=== PATIENT | female | born 1930 | race Caucasian/White ===

== ENCOUNTER 2017-01-11 10:01 | Outpatient (CLI) | payer MEDICARE, MEDICAID ==
--- NOTE | 2017-01-11 13:44 | RAD ---
CHEST TWO VIEWS: HISTORY: Dyspnea. COMPARISON: None. FINDINGS: The lungs are hyperinflated. Nodular density is present over the left upper lobe, left lower lobe, and right upper lobe. There is a compression fracture with near complete anterior height loss and 50% posterior height los s at the mid thoracic spine, likely at T7. Degenerative changes of the right acromioclavicular joint. Calcific tendinosis of both rotator cuff s. Narrowing of the right subacromial space. Likely old right-sided rib fractures. Surgical clips in the right upper quadrant of the abdomen. IMPRESSION: 1. Nodular densities, left upper lobe, left lower lobe, and right middle lobe, likely scarring or g ranulomas. Follow-up CT of the chest can be obtained. 2. Lung hyperinflation suggests obstructive pulmonary disease. 3. Compression fracture likely at T7 with complete anterior height loss and 40% to 50% posterior he ight loss of the vertebral body with focal kyphosis. POS: [facility]
== END 2017-01-11 10:02 | disposition home or self-care (01) ==
LOC: RAD 10:01
PROVIDERS: ATTEND Internal Medicine Critical Care Medicine
DX: R06.00 Dyspnea, unspecified (principal); R91.8 Other nonspecific abnormal finding of lung field
CPT/HCPCS: 71020

== ENCOUNTER 2017-02-04 18:21 | Inpatient (IN) | payer MEDICARE, MEDICAID ==
[~2017-02-04 18:21] MED LIST: ISOVUE-370 76%-LOCM 1 ML ONE
[2017-02-04] MEDS ORDERED: Acetaminophen 650 MG Suppository ONE (19:21)
[2017-02-04 19:33] LABS: #Lymphocytes 0.6 thou/uL (1.20-3.40); #Monocytes 0.6 thou/uL (0.11-0.59); #Neutrophils 4.7 thou/uL (1.40-6.50); %Basophils 0.3 % (0.0-1.0); %Eosinophils 0.3 % (0.0-10.0); %Monocytes 10.2 % (0.0-10.0); Hematocrit 57.6 % (36.0-47.0); Mean Platelet Volume 7.2 fL (7.4-10.4); Red Blood Cell (RBC) Count 5.77 mill/uL (4.20-5.40); White Blood Cell (WBC) Count 5.9 thou/uL (4.8-10.8)
[2017-02-04] MEDS ORDERED: Piperacillin/Tazobactam 3.375 GM in Sodium Chloride 0.9% 100 ML IVPB SCH (19:45)
[2017-02-04 19:59] LABS: Lactic Acid - Sepsis 0.9 mmol/L (0.5-2.2)
[2017-02-04 20:04] LABS: ALT (SGPT) 47 U/L (8-55); AST (SGOT) 44 U/L (5-34); Alkaline Phosphatase 63 U/L (40-150); Anion Gap 16 mmol/L (10-20); BUN (Urea Nitrogen) 20 mg/dL (9.8-20.1); Bilirubin, Total 0.6 mg/dL (0.2-1.2); Calc. Creatinine Clearance 0 mL/min (70-130); Calcium 9.1 mg/dL (7.8-10.44); Carbon Dioxide 21 mmol/L (23-31); Chloride 105 mmol/L (98-107); Estimated GFR-MDRD 68; Globulin 3.7 g/dL (2.4-3.5); Protein, Total 6.9 g/dL (6.0-8.3)
--- NOTE | 2017-02-04 20:06 | RAD ---
PORTABLE UPRIGHT FRONTAL CHEST RADIOGRAPH 02/04/17 COMPARISON: 01/29/17 HISTORY: Fever and altered mental status. FINDINGS: No pneumothorax is seen. There is pulmonary vascular prominence. There is increased linear density i n both lung bases, left greater than right. There is dense opacity in the left lower lobe region. Re cent CT performed demonstrates consolidation/collapse of left lower lobe and bilateral ple ural effusions. Blunting of the costophrenic angle suggests persistent pleural fluid. IMPRESSION: Pulmonary vascular prominence with interstitial density in both lung bases, dense opacity in the lef t lower lobe region and small bilateral pleural effusions. Findings are most consistent with pulmona ry edema, but infectious pneumonitis, particularly in the left lung base, cannot be excluded. Follow up imaging following treatment to document resolution advised. POS: [facility]
[2017-02-04 20:55] LABS: Bilirubin Negative (Negative); Blood, Urine Small (Negative); Glucose, Urine (Dipstick) Negative (Negative); Ketone, Urine 15 mg/dL (Negative); Nitrite Negative (Negative); Protein, Urine (Dipstick) 100 mg/dL (Neg-Trace); Urobilinogen 0.2 mg/dL (0.2-1.0)
[2017-02-04 20:56] LABS: Bacteria/HPF None Seen HPF (None Seen); Hyaline Casts/LPF 0-3 HYALINE CAST LPF (0-3 Hyaline); Squamous Epithelial 0-3 HPF (0-3)
[2017-02-04 21:00] LABS: Oxyhemoglobin 94.7 % (94.0-97.0); Sodium 139 mmol/L (135-148)
[2017-02-04 21:01] LABS: Mode NC; Modified Allen's Test POSITIVE
--- NOTE | 2017-02-04 22:16 | CT ---
CT ANGIOGRAM CHEST 02/04/17 COMPARISON: None. HISTORY: Tachycardia, altered mental status. TECHNIQUE: Serial axial CT imaging at 2.5 mm intervals from thoracic inlet through upper abdomen with IV contra st using a CT angiogram protocol. Coronal and sagittal 3D reformatted imaging obtained. FINDINGS: No axillary lymphadenopathy. There is an enlarged left hilar node measuring 1.1 cm in short axis dim ension. There is a mildly enlarged pretracheal node measuring 1 cm in short axis dimension. There is a probable cyst seen centrally within the liver on axial image 86. No significant mediastinal or pericardial fluid. Small/moderate bilateral pleural effusions are noted, left greater than right. There is adequate opacification of the pulmonary arterial vasculature with no evidence for acute pul monary embolism. Mild hazy ground glass opacity is noted within the posterior aspect of the lingula. There is nonspec ific partial consolidation/collapse of the left lower lobe. There is increased linear density in the posterior aspect of the right lower lobe abutting the above described right pleural effusion sugges ting volume loss. Granulomatous calcification noted in the right upper lobe. Right middle and right upper lobe otherwise unremarkable. There is a severe compression deformity involving a mid thoracic vertebral body, likely T8. There is an old fracture of the right scapula superiorly/posteriorly. The bones are osteopenic. IMPRESSION: 1. No evidence for pulmonary embolism. Bilateral pleural effusions with associated pulmonary pa renchymal opacity, likely on the basis of pulmonary edema, infectious pneumonitis cannot be excluded . Followup imaging following treatment to document resolution advised. 2. Nonspecific mild left hilar and mediastinal adenopathy. This may be reactive in nature. This could be reactive in nature. This could be better assessed on followup imaging following treatment of the acute findings. POS: [facility]
[2017-02-04] MEDS ORDERED: Ondansetron ODT 4 MG TAB SL PRN (23:11)
[2017-02-04] MEDS ORDERED: Acetaminophen 325 MG TAB PO PRN (23:11)
[2017-02-04] MEDS ORDERED: Ondansetron HCl/PF 4 MG/2 ML Vial IVP PRN (23:11)
[2017-02-04 23:44] VITALS: BMI 21.8
[2017-02-05] MEDS: Piperacillin/Tazobactam 3.375 GM, Admixture Fee 1 EACH in Sodium Chloride 0.9% 100 ML IVPB SCH ×4 (10:02→23:46)
[2017-02-05] MEDS: Acetaminophen 325 MG TAB PO PRN ×2 (17:14→21:01)
--- NOTE | 2017-02-05 18:12 | RAD ---
RIGHT KNEE FOUR VIEW 02/05/17 HISTORY: Pain. COMPARISON: None. FINDINGS: There is extensive calcium pyrophosphate deposition disease throughout the menisci as well of the cr uciate ligaments. Mild osteopenia. There is a small joint effusion. No acute fracture is appreciated . IMPRESSION: 1. Small effusion with calcium pyrophosphate deposition disease. 2. 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 3. Mild sclerosis of the epiphysis can be seen with stress injury. MRI may be helpful. POS: [facility]
[2017-02-06 05:10] LABS: #Eosinphils 0.2 thou/uL (0.0-0.7); #Lymphocytes 1.4 thou/uL (1.20-3.40); #Monocytes 1.1 thou/uL (0.11-0.59); #Neutrophils 10.3 thou/uL (1.40-6.50); %Basophils 0.2 % (0.0-1.0); %Eosinophils 1.2 % (0.0-10.0); %Lymphocytes 10.8 % (21.0-51.0); %Monocytes 8.5 % (0.0-10.0); Hematocrit 39.3 % (36.0-47.0); Mean Platelet Volume 7.2 fL (7.4-10.4); Red Blood Cell (RBC) Count 3.97 mill/uL (4.20-5.40)
[2017-02-06 05:12] LABS: Anion Gap 16 mmol/L (10-20); BUN (Urea Nitrogen) 18 mg/dL (9.8-20.1); Calc. Creatinine Clearance 37 mL/min (70-130); Calcium 8.9 mg/dL (7.8-10.44); Carbon Dioxide 22 mmol/L (23-31); Chloride 108 mmol/L (98-107); Estimated GFR-MDRD 60
[2017-02-06] MEDS: Piperacillin/Tazobactam 3.375 GM, Admixture Fee 1 EACH in Sodium Chloride 0.9% 100 ML IVPB SCH ×3 (05:39→18:30)
--- NOTE | 2017-02-06 07:32 | HP ---
DATE OF ADMISSION: 02/04/2017 REASON FOR ADMISSION/CHIEF COMPLAINT: Evaluation for lethargy. HISTORY OF PRESENT ILLNESS: Ms. Dennis is an 86-year-old female, who was recently in [facility] and discharged on 02/04/2017 after being treated for urinary tract infection and possibl e infiltrate in left lung. She was treated with IV antibiotics and switched to the oral antibiotic and discharged back to the [facility]. At the time of discharge, she was stable. She was alert, awake, and she was hemodynamically stable, but when she arrived at the [facility], they noted the patient was a little bit lethargic and tachycardic. O2 saturation 88% on room air, so EMS was hu d again because of this condition. So the patient was given IV fluids on the way to the hospital 50 0 mL. By the time she came to the hospital, she was more awake and alert. The patient followed the commands while she was in the ER. The patient did have a temperature of 100.7, but her blood press ure was 120/70. Pulse was initially 119, but came down to 79. The patient received Zosyn and vanco mycin IV and also received IV fluids 1 liter and Tylenol. The patient is admitted for further evalu ation and management. PAST MEDICAL HISTORY: 1. Gastroesophageal reflux disease. 2. History of Parkinson disease. 3. History of chronic obstructive pulmonary disease. 4. Generalized weakness. 5. Anxiety disorder. PAST SURGICAL HISTORY: Status post cholecystectomy. CURRENT MEDICATIONS: The patient is on multivitamin daily, Colace daily, ranitidine 150 b.i.d., tra madol p.r.n., Biofreeze q.4 hours. ALLERGIES: CIPRO. FAMILY HISTORY: Nothing of contributory. SOCIAL HISTORY: The patient lives in [facility]. No history of smoking. No history of alcohol i ntake. REVIEW OF SYSTEMS: Cardiovascular: No chest pain. No shortness of breath. Respiratory: No cough. Has a low grade f ever. Gastrointestinal: No nausea or vomiting. No abdominal pain. Genitourinary: No dysuria or hematuria. Central nervous system: No headache, no dizziness. PHYSICAL EXAMINATION: GENERAL: The patient is alert, awake, oriented x3. VITAL SIGNS: Temperature 100.7, respiratory rate 20, blood pressure 130/60, O2 saturation 96% on 2 liters. HEENT: Head is normocephalic, atraumatic. Pupils are equal and reactive to light. Nasopharynx is pink, moist. NECK: Supple. No JVD. LUNGS: Bilateral air entry present. No wheezing, crackles present in left base. CARDIAC: S1, S2 regular. ABDOMEN: Soft, no distention, no tenderness. Normal bowel sounds. RECTAL: Deferred. CENTRAL NERVOUS SYSTEM: No focal neurological deficit. The patient is alert, awake, oriented x2. Motor system power 3-4/5 in all extremities. Deep tendon reflexes 2+ bilaterally. Plantar downgoin g. EXTREMITIES: Right knee is tender and stiff. No swelling. Range of movements limited. LABORATORY DATA: CBC shows WBC 5.9, hemoglobin 18, hematocrit 57, platelets 185. Metabolic panel: Sodium 138, potassium 3.8, chloride 105, CO2 of 21, urea nitrogen 20, creatinine 0.8, glucose 115. ABG showed pH of 7.45, pCO2 of 35, pO2 of 75, saturation 96%. Urinalysis showed wbc's 4-6, bacteri a none. Chest x-ray showed hazy density in the left lower lobe and mild pleural effusions bilateral ly. CT angio chest showed no pulmonary embolism, did show pleural effusion with density in the left lower lobe. EKG not done. ASSESSMENT: 1. Possible pneumonia, left lower lobe. 2. Encephalopathy, metabolic. 3. Tachycardia and hypoxia. 4. History of urinary tract infection. 5. History of chronic obstructive pulmonary disease. 6. History of Parkinson disease. PLAN: 1. Vital signs q.4 hours. 2. Activity: As tolerated. 3. Allergies: CIPRO. 4. Diet: Regular. 5. Hep-Lock. 6. Zosyn 3.375 grams IV piggyback q.6 hours. 7. Continue [facility] medication. 8. BNP now. 9. The patient is DNR. 10. DuoNebs p.r.n. 11. Tramadol p.r.n. 12. X-ray of the left knee. 13. Echocardiogram.
[2017-02-06] MEDS: Docusate 100 MG CAP PO SCH (08:54)
[2017-02-06] MEDS ORDERED: FLU VACC TS2017-18 (>65YR) 0.5 ML SYRINGE IM ONE (09:00)
[2017-02-06] MEDS ORDERED: Ketorolac Tromethamine 30 MG/ML VIAL IVP SCH (10:30)
[2017-02-06] MEDS ORDERED: predniSONE 20 MG TAB PO SCH (10:30)
[2017-02-06] MEDS: Acetaminophen 325 MG TAB PO PRN (16:15)
--- NOTE | 2017-02-06 17:00 | CON ---
DATE OF CONSULTATION: 02/06/2017 REASON FOR CONSULTATION: Readmission with change in mental status, hypoxemia, low grade temperature elevation. HISTORY OF PRESENT ILLNESS: An 86-year-old who I had seen just a few days ago when she presented wi th history of Parkinson's disease and COPD, who had been admitted with fever, some rest, but no othe r symptoms associated with the finding. Initial findings in the emergency room included temperature 102, initial white cell count 8.7 with a predominance of mature neutrophils and some pyuria in the urinalysis. She had 3 different organisms retrieved from urine sample, but CT angio and the duplex ultrasound of lower extremities with no evidence of thromboembolism. In the hospital, she was given broad spectrum antimicrobial coverage and improved and eventually transitioned back to oral and dis charged. In the [facility], she then stayed more than a few hours, the nurses were concern with r ecrudescence of the abnormalities in mental status, since she had a low-grade temperature elevation and hypoxemia noted as well. O2 sat around mid 80s. The patient was transferred back here and admi tted again. Initial findings, temperature 100.7, respiratory rate 20, blood pressure 130/60, O2 sat 96% on 2 liters. The exam was not remarkable. Initial lab data, white cell count 5.9, hemoglobin 18, platelets 185, 79% neutrophils. The patient was given inhalers, Protonix, Zosyn, prednisone. Jory george, Ms. Dennis is awake, seems to be back to her baseline. She has no complaints at this t benny. Specifically, no headaches, no shortness of breath, no cough, no abdominal pain. She is voidi ng spontaneously. PAST MEDICAL HISTORY: Parkinson's disease, GERD, COPD, anxiety, weakness. PAST SURGICAL HISTORY: Cholecystectomy. ALLERGIES: CIPROFLOXACIN with rash. CURRENT MEDICATIONS: Inhalers, Protonix, Zosyn, and prednisone. FAMILY HISTORY: Noncontributory. SOCIAL HISTORY: group home resident. Never a smoker. PHYSICAL EXAMINATION: VITAL SIGNS: T-max 98.7, blood pressure 130/60, pulse 89, respirations 18, O2 sat 96%. GENERAL: No distress, awake. She has hypomotility typical of Parkinson's disease. She is oriented , follows commands. SKIN: No areas of skin breakdown. Peripheral IV access. The patient is voiding with the assistanc e of a Nuñez catheter. HEENT: Ocular movements are conjugate. Sclerae are white. The conjunctivae normal. Oral cavity n ot remarkable. Diffuse stiffness. LUNGS: With symmetric air entry. HEART: S1, S2, regular rate. ABDOMEN: Soft, not distended, no tenderness, diffuse stiffness. EXTREMITIES: No joint inflammatory activity. Trace edema in lower extremities. Pulses are 1+ in d orsalis pedis. She is able to move extremities with limitations, resting tremor. LABORATORY: Microbiology with negative blood and urine culture thus far. The imaging studies as no mikayla above. There is a knee x-ray from 02/05/2017, CPPD findings. ASSESSMENT: 1. Parkinson disease. 2. Chronic obstructive pulmonary disease. 3. Hypoxemia, hypoventilation. 4. Low grade temperature elevation. 5. Possible pneumonia. DISCUSSION: The most likely scenario is persistence of pneumonia and exacerbation of hypoventilatio n associated with Parkinson disease, hypoxemia. Continue IV Zosyn, DVT prophylaxis. It does not lo ok like she is on any medication for Parkinson disease and she may require Sinemet to manage the mot ility abnormalities which are probably contributing to her respiratory issues. At this time, I will her in the hospital until there is further improvement in the patient's pneumonitis, consider O2 joy pplementation in the [facility] and again consider starting specific management for Parkinson dise ase with carbidopa/levodopa with the assistance of Neurology.
[2017-02-06] MEDS: Vancomycin HCl 1 GM in Premix Bag 1 BAG IVPB SCH (17:25)
[2017-02-06] MEDS ORDERED: Clopidogrel Bisulfate 75 MG TAB ONE (18:29)
[2017-02-07] MEDS: Piperacillin/Tazobactam 3.375 GM, Admixture Fee 1 EACH in Sodium Chloride 0.9% 100 ML IVPB SCH ×4 (01:03→18:02)
[2017-02-07] MEDS: Vancomycin HCl 1 GM in Premix Bag 1 BAG IVPB SCH ×2 (05:33→16:32)
[2017-02-07 05:34] LABS: Anion Gap 12 mmol/L (10-20); BUN (Urea Nitrogen) 21 mg/dL (9.8-20.1); Calc. Creatinine Clearance 38 mL/min (70-130); Calcium 8.7 mg/dL (7.8-10.44); Carbon Dioxide 25 mmol/L (23-31); Chloride 109 mmol/L (98-107); Estimated GFR-MDRD 61
[2017-02-07] MEDS ORDERED: predniSONE 20 MG TAB PO SCH (09:00)
[2017-02-07] MEDS: Docusate 100 MG CAP PO SCH (09:50)
[2017-02-07] MEDS ORDERED: Furosemide 40 MG/4 ML VIAL SLOW IVP SCH (12:45)
--- NOTE | 2017-02-07 12:59 | PQF ---
CLINICAL DOCUMENTATION IMPROVEMENT CLARIFICATION FORM: ICD-10 Updated PLEASE DO AN ADDENDUM TO THE PROGRESS NOTE WITH ANY DOCUMENTATION UPDATES OR ADDITIONS AND CARRY THROUGH TO DC SUMMARY. THANK YOU. DATE: 02/07 ATTN: DR. Hamlet SEGOVIA Please exercise your independent, professional judgment in responding to the clarification form. Clinical indicators are provided on the bottom of this form for your review Please check appropriate box(s): [ ] Acute Respiratory Failure: [ ] with Hypoxia [ ] with Hypercapnia [ ] Acute Respiratory Failure due to: (etiology) [ y ] Other diagnosis _pneumonia [ ] Unable to determine For continuity of documentation, please document condition throughout progress notes and discharge summary. Thank You. CLINICAL INDICATORS - SIGNS / SYMPTOMS / LABS ER PRESENTATION 02/04: RA SAT: 88%, PLACED ON 2L NC: 95% PATIENT CONFUSED, A/O X1 CXR 02/04: PULMONARY VASCULAR PROMINENCES W/INTERSTITIAL DENSITY IN BOTH LUNG BASES, DENSE OPACITY IN LLL REGION & SMALL B PLEURAL EFFUSIONS, ...C/W PULMONARY EDEMA, BUT INFECTIOUS PNEUMONITIS, ...CANNOT BE EXCLUDED PHYSICIAN H&P DOCUMENTATION 02/04: ASSESSMENT: 3. TACHYCARDIA & HYPOXIA RISK FACTORS: HX OF COPD HYPOXIA POSSIBLE LLL PNEUMONIA TREATMENTS: SUPPLEMENTAL OXYGEN (2L NC) IV ANTIBIOTICS (IV ZOSYN & VANCOMYCIN 02/04 - PRESENT) MONITORING OF 02 STATUS PULMONOLOGY CONSULT THANK YOU! Violet (This form is maintained as a part of the permanent medical record) 2014 [email or web address]. All Rights Reserved Violet Horn RN, BSN [email or web address] Office: [phone] [facility]
--- NOTE | 2017-02-07 13:09 | PQF ---
SAP Wire Tester Crystal Reports Winform ViewerALEXAKEARA,MATHIEU SEGOVIA, RUTHIE Dexter [place] [id number] [facility]-[id number] CLINICAL DOCUMENTATION IMPROVEMENT CLARIFICATION FORM: ICD-10 Updated PLEASE DO AN ADDENDUM TO THE PROGRESS NOTE WITH ANY DOCUMENTATION UPDATES OR ADDITIONS AND CARRY THROUGH TO DC SUMMARY. THANK YOU. DATE: 02/07 ATTN: DR. Hamlet SEGOVIA Please exercise your independent, professional judgment in responding to the clarification form. Clinical indicators are provided on the bottom of this form for your review Please check appropriate box(s): [ ] Sepsis due to: (Pna, UTI, gangrenous gall bladder, etc.) [ ] Severe sepsis with acute organ dysfunction of: (Examples: respiratory failure, encephalopathy, acute kidney failure, other) [ y ] Localized infection without sepsis [ ] Other diagnosis [ ] Unable to determine For continuity of documentation, please document condition throughout progress notes and discharge summary. Thank You. CLINICAL INDICATORS - SIGNS / SYMPTOMS / LABS ER PRESENTATION 02/04: T: 101.2 HR: 119 RA SAT 88% AMS ER PHYSICIAN DIAGNOSES DOCUMENTATION 02/04: PRIMARY: SEPSIS, ADDITIONAL: AMS PHYSICIAN H&P DOCUMENTATION 02/04: ASSESSMENT: 1. POSSIBLE PNEUMONIA, LLL; 2. ENCEPHALOPATHY, METABOLIC RISK FACTORS: PNEUMONIA METABOLIC ENCEPHALOPATHY UTI RECENT SEPSIS TREATMENTS: IV ANTIBIOTICS (ZOSYN & VANCOMYCIN 02/04 - PRESENT) INFECTIOUS DX CONSULT THANK YOU! Violet (This form is maintained as a part of the permanent medical record) 2014 [email or web address]. All Rights Reserved Violet Horn RN, BSN [email or web address] Office: [phone] [facility]
--- NOTE | 2017-02-07 14:51 | PRG ---
DATE OF SERVICE: 02/07/2017 SUBJECTIVE: The patient has been transferred to [facility]. No headaches, no chest pain. Some cough. N o abdominal pain, no diarrhea. OBJECTIVE: VITAL SIGNS: Temperature max 97.5, blood pressure 120/78, pulse 68, respirations 16 and O2 saturati on 97%. GENERAL: Appears again quite low mobility probably secondary to Parkinson disease. Resting tremors noted in the right upper extremity. LUNGS: With few crackles on the left side. HEART: S1 and S2, regular rate. ABDOMEN: Soft. LABORATORY AND IMAGING DATA: White cell count from yesterday 13,000 and hemoglobin 12. Today's amanda gloria with a creatinine of 0.87, BUN 21 and chloride 109. Microbiology with negative blood culture s at 48 hours, negative urine culture. Echocardiogram; there was an area of thickening aortic valve , possible echogenic mass. ASSESSMENT AND DISCUSSION: Likely Parkinson disease, chronic obstructive pulmonary disease, possibl e persistence of pneumonia and now this finding in the echocardiogram. She will have to complete a transesophageal echocardiography to further evaluate that finding in the echocardiogram. In the abs ence of positive blood cultures, even the presence of vegetation might not necessarily implicate an infection; it could be just bland vegetation. If pending on results of the echo of the transesophag eal echocardiography, then again I would like to emphasize the need to further evaluate neurological syndrome since she might benefit from treatment if she does have confirmed a diagnosis of Parkinson disease. This might decrease the chance of complications related to it such as respiratory tract i nfections.
--- NOTE | 2017-02-07 21:19 | CON ---
DATE OF CONSULTATION: 02/07/2017 SERVICE: Pulmonary Medicine. REASON FOR CONSULTATION: Pleural effusions. HISTORY OF PRESENT ILLNESS: The patient is an 86-year-old white female with past medical history si gnificant for dementia. This apparently is related to Parkinson's disease. We do not have a clear cut diagnosis for what she suffers from. Either way, she has been having recurrent fevers going on for several weeks. Originally, she was treated for urinary tract infection, but after she completed that treatment course, she relapsed and had fevers once again. She was treated for pneumonia, but had relapse and had recurrent fever. At this time, she had an echocardiogram demonstrating a possib le vegetation on this aortic valve. During this whole period of time, she did not have any suggesti on of cough, or difficulty breathing. She is currently living in a nursing facility, but at [facility], she is able to get up with some assistance and uses a walker under her own strength. Otherwise, she has no complaints of dyspnea at rest or exertion. She denies having any orthopnea or paroxysmal nocturnal dyspnea. She has no chest pain or palpitations. PAST MEDICAL HISTORY: 1. Parkinson's related disease. 2. COPD. 3. Gastroesophageal reflux disease. 4. Debility/deconditioning. 5. Anxiety disorder. PAST SURGICAL HISTORY: Cholecystectomy. ALLERGIES: CIPROFLOXACIN INPATIENT MEDICATIONS: List of her inpatient medicines were reviewed. Multiple updates were made a t this time. FAMILY HISTORY: Noncontributory. SOCIAL HISTORY: She currently lives in a assisted. She has no significant history of smoking, alcohol use, or illicit drug use. She has no known exposures to chemicals, dust, asbestos or tuberc ulosis. REVIEW OF SYSTEMS: General, head, ears, eyes, nose, throat, cardiovascular, respiratory, GI, , mu sculoskeletal, neurologic and skin is negative except as mentioned in the HPI. PHYSICAL EXAMINATION: VITAL SIGNS: Currently afebrile with a T-max of 100.7 in the nursing facility. Pulse 68, blood pre ssure 127/78, respirations 12, saturation 97% on 1 liter nasal cannula. GENERAL: Patient is awake, alert, in no apparent distress. LUNGS: Excellent air entry. There is no prolonged expiratory phase. There are some rhonchi presen t throughout bilateral lung lackey, but they are more predominantly displayed in the left base. I d o not appreciate much in the way of wheezing. Minimal dependent crackles are also evident. HEART: Normal rate, regular. ABDOMEN: Soft, nontender, nondistended, bowel sounds positive. MUSCULOSKELETAL: No cyanosis or clubbing. Trace pitting in the bilateral lower extremities. GENITOURINARY: Nuñez catheter in place. NEUROLOGIC: Grossly nonfocal. LABORATORY DATA: WBC 13.0, hemoglobin 12.3, platelets 336,000. Neutrophil count is 79%. PH 7.45, pCO2 of 35, pO2 of 75 on 3 liters nasal cannula at that time. Basic metabolic profile is completely unremarkable. BNP was previously 157. Liver function studies are unremarkable on presentation. U rinalysis was negative for nitrites and only trace for leukocyte esterase. Blood cultures x2 and ur ine culture are negative to date. IMAGIN. Chest x-ray demonstrates findings consistent with bilateral pleural effusions, pulmonary vascula r congestion, and increased interstitial markings, particularly in the bibasilar region. 2. CTA of the chest demonstrates no evidence of a pulmonary embolism. There is atelectasis in the bilateral lower lobes, with adjacent, small pleural effusions. There are also some ground glass tristian nges which are more predominant in the bibasilar and posterior regions of the chest. Minimal change s consistent with emphysema are identified. Prominent lymph nodes are present without overt lymphad enopathy. 3. Echocardiogram demonstrates a normal ejection fraction of 55-60%. The aortic valve leaflets are thickened and there is a possible echogenic mass suggestive of vegetation on one of the valves whic h cannot be further characterized on the basis of the transthoracic echo. ASSESSMENT: 1. Acute hypoxic respiratory failure. 2. Acute on chronic diastolic heart failure. 3. Possible aortic valve vegetation. 4. Pleural effusions, small and bilateral. PLAN: I will provide the patient with a single dose of Lasix as she is clinically minimally volume overloaded. Speech Pathology consultation will be performed to make certain the patient is not havi ng problems with her swallow. These effusions are currently small. If with optimization of fluid balance, they persist, a thoracentesis can be considered at a later date. Based on the CT, they are free flowing and do not take on the appearance of an infected space. Antibiotics per Infectious Di sease. Pulmonary will continue to follow but Dr. Jackson will assume care in the morning.
[2017-02-08] MEDS: Piperacillin/Tazobactam 3.375 GM, Admixture Fee 1 EACH in Sodium Chloride 0.9% 100 ML IVPB SCH ×5 (00:09→23:19)
[2017-02-08 05:17] LABS: Vancomycin, Trough 25.2 ug/mL
[2017-02-08] MEDS: Docusate 100 MG CAP PO SCH (08:26)
[2017-02-08] MEDS ORDERED: Diprivan 0 ML ONE (10:09)
--- NOTE | 2017-02-08 13:27 | CON ---
DATE OF CONSULTATION: 02/08/2017 Ms. Dennis is an 86-year-old female. She was seen by me in the office in 10/2015. At that time she had moved here and was in the office with her [id number]. She came here from the [facility]. She had been diagnosed with Parkinson's disease and reached a point where she cannot care fo r herself. Chest radiograph done for a cough showed small pulmonary nodules. I suspected these were old granulomatous disease. I was not able to review the films because of whe re they were done, but since I have also felt that there was no way we would workup multiple pulmona ry nodules given her advanced state of her Parkinson's disease. I recommended a repeat radiograph. We talked about feeding tube placement. The [id number] did not feel anybody in the family woul d want a feeding tube. She was seen back by me in January of this year. She is noted to still be dealing with Parkinson's disease. She came with someone from the [facility] where she resided. At that time her vital sign s are normal. Her lungs are clear. Chest radiograph showed a 1 cm nodule in the right lower lung f ield and scattered small nodules that were smooth. I recommended no further workup other than a rep eat radiographic in 6 months and only if the family really wanted this. I reviewed the history related to this admission. PHYSICAL EXAMINATION: VITAL SIGNS: She is afebrile, heart rate 71, respiratory rate is 18, oximetry is 94, blood pressure 144/68. She has undergone a transesophageal echo today. LUNGS: Lungs were clear prior to going down for her echocardiogram. IMPRESSION: 1. Advanced Parkinson's disease. 2.? Valvular vegetation. Her blood cultures are negative. Because the advanced state of her Parkinson's disease she is not a candidate for anything surgical o r invasive in my opinion. I will continue to follow with the other physicians caring for her.
--- NOTE | 2017-02-08 13:41 | ECHO ---
TRANSESOPHAGEAL ECHOCARDIOGRAM: HISTORY: The patient is an 86-year-old woman with sepsis and mitral regurgitation. PROCEDURE: The patient was taken to the PACU. The patient was sedated by anesthesiology. A transesophageal probe was placed to the distal esophagus and stomach. Echocardiograms were obtained and the transesophageal probe was removed. FINDINGS: 1. Normal left ventricular systolic function. 2. Normal left atrium. 3. The aortic valve leaflets are mildly thickened without any obvious mass suggestive of vegetation. 4. Mild to moderate mitral regurgitation. 5. Mild tricuspid regurgitation. 6. Trivial aortic regurgitation. 7. No atherosclerotic debris in the descending aorta. IMPRESSION: No vegetations noted on the cardiac valves. POS: [facility]
[2017-02-08] MEDS ORDERED: Vancomycin HCl 500 MG in Sodium Chloride 0.9% 100 ML IVPB SCH (17:00)
[2017-02-09] MEDS: Piperacillin/Tazobactam 3.375 GM, Admixture Fee 1 EACH in Sodium Chloride 0.9% 100 ML IVPB SCH ×3 (05:48→18:41)
[2017-02-09] MEDS: Docusate 100 MG CAP PO SCH (08:33)
--- NOTE | 2017-02-09 09:04 | PQF ---
CLINICAL DOCUMENTATION IMPROVEMENT CLARIFICATION FORM: ICD-10 Updated PLEASE DO AN ADDENDUM TO THE PROGRESS NOTE WITH ANY DOCUMENTATION UPDATES OR ADDITIONS AND CARRY THROUGH TO DC SUMMARY. THANK YOU. DATE: 02/09 ATTN: DR. Hamlet SEGOVIA Please exercise your independent, professional judgment in responding to the clarification form. Clinical indicators are provided on the bottom of this form for your review Please check appropriate box(s): [ ] Aspiration Pneumonia [ y] Empirically treating Gram Negative Pneumonia [ ] Empirically treating Anaerobic Pneumonia [ ] Pneumonia secondary to (specify organism / underlying disease) [ ] Other diagnosis [ ] Unable to determine For continuity of documentation, please document condition throughout progress notes and discharge summary. Thank You. CLINICAL INDICATORS - SIGNS / SYMPTOMS / LABS PHYSICIAN H&P DOCUMENTATION 02/04: ASSESSMENT: 1. POSSIBLE PNEUMONIA, LLL PHYSICIAN PROGRESS NOTES DATED 02/04 - : PNEUMONIA, LLL CXR 02/04: ...DENSE OPACITY IN LLL REGION... C/W PULMONARY EDEMA, BUT INFECTIOUS PNEUMONITIS CANNOT BE EXCLUDED SPEECH CONSULT DOCUMENTATION 02/07: PROPAGATOR CANNOT RULE OUT SILENT ASPIRATION AT THE BEDSIDE. RISK FACTORS: RECENT TREATMENT FOR LLL INFILTRATE (DISCHARGED ON 02/04 & READMITTED SAME DAY) HX OF PARKINSON'S DX HX COPD TREATMENTS: IV ANTIBIOTICS (VANCOMYCIN 02/04-; ZOSYN 02/04 - PRESENT) SUPPLEMENTAL OXYGEN SPEECH CONSULT PULMONOLOGY CONSULT THANK YOU! Violet (This form is maintained as a part of the permanent medical record) 2014 [employer]. All Rights Reserved Violet Horn RN, BSN [email or web address] Office: [phone] [facility] CENTERY[facility]
--- NOTE | 2017-02-09 16:18 | PRG ---
DATE OF SERVICE: 02/09/2017 SUBJECTIVE: Ms. Dennis was smiling and cooperative this morning. She is minimally verbal as usu al because of her Parkinson's disease. OBJECTIVE: VITAL SIGNS: She is afebrile, heart rate 66, respiratory rate 17, oximetry is 94, blood pressure 12 2/58. LUNGS: Clear anteriorly. HEART: Regular rhythm. ABDOMEN: Soft. Transesophageal echocardiogram done, showed no vegetations. IMPRESSION: 1. Advanced Parkinson's disease. 2. False positive transthoracic echocardiogram. Transesophageal echo showed no vegetation. 3. Mild volume overload. 4. History of reflux disease. 5. History of pulmonary nodules that are felt to be secondary to old granulomatous disease. PLAN: No clear reason for her to stay on the telemetry monitoring, especially when she is a do-not- resuscitate patient with advanced Parkinson's disease. She can be moved to regular medical bed. He r antimicrobial therapy can be switched to p.o. medications in morning.
[2017-02-10] MEDS: Piperacillin/Tazobactam 3.375 GM, Admixture Fee 1 EACH in Sodium Chloride 0.9% 100 ML IVPB SCH (00:20)
[2017-02-10 05:36] LABS: #Basophils 0.1 thou/uL (0.0-0.2); #Eosinphils 0.2 thou/uL (0.0-0.7); #Lymphocytes 2.3 thou/uL (1.20-3.40); #Monocytes 0.9 thou/uL (0.11-0.59); #Neutrophils 5.7 thou/uL (1.40-6.50); %Eosinophils 2.5 % (0.0-10.0); %Lymphocytes 24.9 % (21.0-51.0); %Monocytes 9.2 % (0.0-10.0); Hematocrit 38.9 % (36.0-47.0); Mean Platelet Volume 7.4 fL (7.4-10.4); Red Blood Cell (RBC) Count 3.88 mill/uL (4.20-5.40); White Blood Cell (WBC) Count 9.2 thou/uL (4.8-10.8)
[2017-02-10 06:06] LABS: Anion Gap 14 mmol/L (10-20); BUN (Urea Nitrogen) 22 mg/dL (9.8-20.1); Calc. Creatinine Clearance 38 mL/min (70-130); Calcium 8.9 mg/dL (7.8-10.44); Carbon Dioxide 24 mmol/L (23-31); Chloride 104 mmol/L (98-107); Estimated GFR-MDRD 61
[2017-02-10] MEDS: Docusate 100 MG CAP PO SCH (09:01)
[2017-02-10] MEDS: Amoxicillin/Potassium Clav 875 MG TAB PO SCH ×2 (09:01→20:23)
--- NOTE | 2017-02-10 11:55 | PRG ---
DATE OF SERVICE: 02/10/2017 Elana Dennis has no new problems were reported by the nursing staff. PHYSICAL EXAMINATION: VITAL SIGNS: She is afebrile, heart rate 86, respiratory rate 14, oximetry is 94, blood pressure 12 9/78. She is now tolerating her medications by mouth. There is no new exam findings or other problems reported. 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
[2017-02-11] MEDS: Docusate 100 MG CAP PO SCH (08:59)
[2017-02-11] MEDS ORDERED: Cefdinir 300 MG CAP PO SCH (09:00)
[2017-02-11 11:36] VITALS: BP 106/64; TEMP 98.2
--- NOTE | 2017-02-16 00:18 | DIS ---
DATE OF ADMISSION: 02/04/2017 DATE OF DISCHARGE: 02/11/2017 ADMITTING DIAGNOSES: 1. Possible pneumonia, left lower lobe. 2. Metabolic encephalopathy. 3. Tachycardia and hypoxia. 4. History of chronic obstructive pulmonary disease. 5. Urinary tract infection. 6. History of Parkinson disease, not on medication due to sensitive to medications. FINAL DIAGNOSES: 1. Possible pneumonitis, left lower lobe. 2. Metabolic encephalopathy, improved. 3. Hypoxia, improved. 4. History of urinary tract infection. 5. History of severe Parkinson disease, not on medication due to sensitive to medications. BRIEF SUMMARY OF HOSPITAL COURSE: Ms. Dennis is an 86-year-old female admitted because of fever, change in mental status, hypoxia and lethargy. The patient was found to have possible pn eumonia in the left lower lobe. She was started on Zosyn, vancomycin and fluids. The patient son m et Dr. Haque in consultation with Infectious Disease. He felt the patient possibly has pneumonitis in the left lower lobe and suggested medication for Parkinson's. The patient was continued on Zosyn . An echocardiogram was done, which showed questionable vegetation in the valves and a transesophag eal echocardiogram was done which did not reveal any kind of vegetation. The patient received vanco mycin for a few days then it was stopped. The patient also had some evidence of fluid and received 1 dose of Lasix. In view of improvement, the patient was discharged back to [facility]. At the t benny of discharge, she was stable. Her vital signs were stable. Lungs were clear. Heart sounds reg ular. Abdomen soft and nontender. Bowel sounds present. DISCHARGE MEDICATIONS: Include Tylenol p.r.n., ranitidine 150 b.i.d., Colace 100 mg daily p.r.n., t ramadol 50 q.i.d. p.r.n., DuoNebs q.i.d. p.r.n. and Omnicef 300 b.i.d. for 10 days. FOLLOWUP: The patient will be followed up in [facility].
== END 2017-02-11 11:38 | DRG 177 ==
LOC: ERS 18:21 → 2NO 21:08 → T4-A 02-09 16:47
PROVIDERS: ADMIT Internal Medicine; ATTEND Internal Medicine
PROC: B24BZZ4 Ultrasonography of Heart with Aorta, Transesophageal (ICD-10-PCS; principal; 2017-02-08)
DX: J15.6 Pneumonia due to other Gram-negative bacteria (principal); G93.41 Metabolic encephalopathy; J96.01 Acute respiratory failure with hypoxia; K52.1 Toxic gastroenteritis and colitis; J44.0 Chronic obstructive pulmonary disease with (acute) lower respiratory infection; G20 Parkinson's disease; R00.0 Tachycardia, unspecified; K21.9 Gastro-esophageal reflux disease without esophagitis; T36.0X5A Adverse effect of penicillins, initial encounter; Y92.230 Patient room in hospital as the place of occurrence of the external cause; I08.1 Rheumatic disorders of both mitral and tricuspid valves
CPT/HCPCS: 36415; 51702; 71010; 71275; 80048; 80053; 80202; 81003; 81015; 82805; 83605; 83880; 85025; 87040; 87086; 90471; 90682; 93306; 93312; 96365; A4216; G0008; G8996-GN-CJ; G8997-GN-CJ; J1885; J1940; J2543; J2704; J3370; J7050; J7506; Q2036

== ENCOUNTER 2017-04-20 20:09 | Emergency (ER) | payer MEDICARE, MEDICAID ==
--- NOTE | 2017-04-20 21:06 | RAD ---
TWO VIEWS LEFT ELBOW 04/20/17 HISTORY: Swollen left wrist. Left elbow pain. Patient fell twice. 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 No obvious fracture is seen. There is no dislo cation. There is suggestion of a small joint effusion. IMPRESSION: Mild degenerative changes at the left elbow, but no obvious fracture is seen. There is suggestion of a small joint effusion, and if patient continues to complain of pain, followup imaging is advised in 4 to 7 days to exclude a radiographically occult fracture. POS: [facility]
--- NOTE | 2017-04-20 21:11 | RAD ---
THREE VIEWS LEFT WRIST 04/20/17 HISTORY: Swollen left wrist after unwitnessed fall. FINDINGS: Calcification is seen in the region of the radiocarpal joint and distal to the ulna likely related to chondrocalcinosis. There is diffuse osteopenia. Mild osteoarthritis involves the first carpometacarp al joint. No obvious fracture is seen. There is no evidence of a dislocation. IMPRESSION: 1. Osteopenia and scattered mild degenerative changes. 2. No obvious fracture. 3. Chondrocalcinosis. 1. POS: [facility]
--- NOTE | 2017-04-20 21:46 | RAD ---
THREE VIEWS OF THE LEFT SHOULDER 04/20/17 HISTORY: Unwitnessed fall. Left shoulder pain. FINDINGS: There is resorption of the distal left clavicle with small corticated fracture fragments seen inferio r to the distal left clavicle. The nonunion fracture of the distal left clavicle was seen on a CTA of the chest on 02/04/17. There is no acute fracture or dislocation involving the left shoulder. The dis malika portion of the left clavicle is slightly elevated. However, findings of the left clavicle are lik catie related to remote injury. There are remote left posterolateral rib fractures involving the left third and fifth ribs. There is what appears to be more acute fracture involving the left posterolateral eighth rib. Amorphous calcif ications are seen in the subacromial space, also seen on the prior CT exam and may be related to calc ific peritendinitis. Vascular calcifications seen in the thoracic aorta. There are degenerative parisi es in the spine. IMPRESSION: 1. Findings likely related to remote injury involving the distal left clavicle. 2. No acute fracture or dislocation seen involving the left shoulder. 3. Calcific peritendinitis. 4. Acute fracture left posterolateral eighth rib with remote upper left sided rib fractures. POS: [facility]
--- NOTE | 2017-04-20 22:09 | RAD ---
PORTABLE AP CHEST X-RAY 04/20/17 HISTORY: Rib fracture. COMPARISON: 01/29/17. FINDINGS: Cardiac silhouette is magnified by projection but stable in size. There are calcifications overlying the right hemithorax which appear more prominent than on the chest x-ray on 01/29/17, but findings ar e probably related to prominent calcifications of the costochondral cartilage. Lungs are otherwise cl ear. No pneumothorax or pleural effusion is appreciated. Multilevel degenerative changes seen in the spine. There is osteopenia. There is resorption of the distal left clavicle with findings related to prior injury of the distal left clavicle. Amorphous calcifications are again seen overlying the suba crominal space likely related to calcific peritendinitis. There are remote bilateral rib fractures with probable more acute nondisplaced fracture involving the lateral left eighth rib is better seen on views of the left shoulder also obtained on this date. No other interval change. IMPRESSION: 1. No acute cardiopulmonary process. 2. Remote bilateral rib fractures with suggestion of a more recent fracture involving the latera l left eighth rib. 3. Remainder of the findings are as described. POS: [facility]
[2017-04-20] MEDS ORDERED: Acetaminophen 325 MG TAB ONE (22:15)
== END 2017-04-20 23:05 ==
LOC: ERS 20:09
DX: S22.31XA Fracture of one rib, right side, initial encounter for closed fracture (principal); S60.212A Contusion of left wrist, initial encounter; K21.9 Gastro-esophageal reflux disease without esophagitis; G20 Parkinson's disease; J44.9 Chronic obstructive pulmonary disease, unspecified; F41.9 Anxiety disorder, unspecified; Z79.899 Other long term (current) drug therapy; W18.30XA Fall on same level, unspecified, initial encounter; Y92.002 Bathroom of unspecified non-institutional (private) residence as the place of occurrence of the external cause
CPT/HCPCS: 71045

== ENCOUNTER 2017-04-22 16:20 | Emergency (ER) | payer MEDICARE, MEDICAID ==
[2017-04-22 16:48] LABS: #Lymphocytes 1.7 thou/uL (1.20-3.40); #Monocytes 1.3 thou/uL (0.11-0.59); #Neutrophils 8.7 thou/uL (1.40-6.50); %Basophils 0.1 % (0.0-1.0); %Eosinophils 0.3 % (0.0-10.0); %Lymphocytes 14.1 % (21.0-51.0); %Monocytes 10.9 % (0.0-10.0); %Neutrophils 74.5 % (42.0-75.0); Hemoglobin 12.1 g/dL (12.0-16.0); Mean Corpuscular HGB CONC 31.7 g/dL (32.0-36.0); Mean Corpuscular Volume 97.9 fl (81.0-99.0); Mean Platelet Volume 7.5 fL (7.4-10.4); Platelet Count 289 thou/uL (130-400); RBC Distribution Width 13.5 % (11.5-14.5); Red Blood Cell (RBC) Count 3.89 mill/uL (4.20-5.40); White Blood Cell (WBC) Count 11.7 thou/uL (4.8-10.8)
[2017-04-22 17:15] LABS: CKMB 0.6 ng/mL (0-6.6); Troponin I Less than 0.010 ng/mL (< 0.028)
[2017-04-22 17:16] LABS: ALT (SGPT) 13 U/L (8-55); AST (SGOT) 15 U/L (5-34); Albumin 3.5 g/dL (3.4-4.8); Alkaline Phosphatase 61 U/L (40-150); Anion Gap 14 mmol/L (10-20); BUN (Urea Nitrogen) 18 mg/dL (9.8-20.1); Bilirubin, Total 0.8 mg/dL (0.2-1.2); CK (CPK) 50 U/L (29-168); Calc. Creatinine Clearance 0 mL/min (70-130); Calcium 9.3 mg/dL (7.8-10.44); Carbon Dioxide 26 mmol/L (23-31); Chloride 100 mmol/L (98-107); Estimated GFR-MDRD 56; Globulin 3.7 g/dL (2.4-3.5); Glucose 113 mg/dL (83-110); Potassium 3.9 mmol/L (3.5-5.1); Protein, Total 7.2 g/dL (6.0-8.3); Sodium 136 mmol/L (136-145)
--- NOTE | 2017-04-22 17:23 | CT ---
CT HEAD WITHOUT CONTRAST: 04/22/17 Multiple axial tomograms obtained through the head without IV enhancement. HISTORY: Fall with injury to head. There is moderate cortical atrophy with cortical volume loss. Increased extra-axial CSF is seen along the right frontal lobe. I cannot exclude an element of chronic subdural hematoma or hygroma at this location. There does appear to be slight effacement of the right frontal lobe cortex in this extra-ax ial CSF along the right frontal lobe measures approximately 1.1 cm thickness. There is no acute hemor rhage. No acute infarct identified. IMPRESSION: 1. There is cortical atrophy. Asymmetric extra-axial CSF density along the right frontal lobe joy ggests a chronic subdural hygroma. This results in slight effacement of the right frontal lobe cortex . 2. There are diffuse opacification of the paranasal sinuses, especially pronounced involving the visualized frontal, ethmoid, sphenoid and left maxillary sinuses. POS: [facility]
--- NOTE | 2017-04-22 17:33 | CT ---
CT CERVICAL SPINE: 04/22/17 Multiple axial tomograms obtained through the cervical spine with multiplanar reconstructions. FINDINGS: Fall with injury to neck. There is a C2 fracture involving the odontoid. This appears to be at the base of the odontoid consist ent with a type II fracture. There is mild displacement. Prominent hypertrophic change at the atlanto axial space is present. This could potentially represent a subacute injury. There may be associated f racture involving the anterior ring of C1 with slight irregularity present associated with this hyper trophic change. Vertebral bodies below C2 are preserved. There are degenerative changes. No other fracture identified . Review of the lung windows reveals a small nodule in the anterior right mid lung measuring approximat catie 5 mm. IMPRESSION: 1. Odontoid fracture and possible fracture of the anterior limb of C1. Prominent hypertrophic ch shantelle at this site might indicate a subacute injury, although I cannot exclude an acute odontoid fract ure. There is slight displacement of the tip of the odontoid. 2. Small nodule in the right anterior lung. Findings were relayed to Dr. Valdovinos. Code LN POS: [facility]
--- NOTE | 2017-04-22 17:35 | RAD ---
LEFT HAND: 04/22/17 Three views. HISTORY: Fall with injury to hand. Osteopenia. Degenerative changes in the carpals and carpometacarpal joints. No definite carpal fractu re. The metacarpals and phalanges appear intact. Degenerative changes in IP joints noted. IMPRESSION: Prominent degenerative changes. No definite fracture identified. There are extraosseous calcification s seen dorsally and ventrally at the carpals which appear degenerative in nature. POS: [facility]
[2017-04-22] MEDS ORDERED: Vancomycin HCl 750 MG in Sodium Chloride 0.9% 250 ML 250 ML IVPB SCH (17:45)
[2017-04-22 17:46] LABS: Bilirubin Negative (Negative); Blood, Urine Negative (Negative); Clarity CLOUDY (Clear); Glucose, Urine (Dipstick) Negative (Negative); Leukocyte Small (Negative); Nitrite Positive (Negative); Protein, Urine (Dipstick) 100 mg/dL (Neg-Trace); Specific Gravity, Urine 1.024 (1.002-1.036)
[2017-04-22 17:56] LABS: Bacteria/HPF 4+ HPF (None Seen); Hyaline Casts/LPF 7-10 HYALINE CAST LPF (0-3 Hyaline); Pathc Cast-AUWi Flag 0.67 (0-2.49); RBC/HPF 0-3 HPF (0-3); Squamous Epithelial 0-3 HPF (0-3)
[2017-04-22 18:03] LABS: Renal Epithelial None Seen HPF (0-3); Transitional Epithelial NONE SEEN HPF (0-3)
[2017-04-22] MEDS ORDERED: Acetaminophen 500 MG TAB ONE ×2 (19:33→19:36)
== END 2017-04-22 21:16 | disposition home or self-care (01) ==
LOC: ERS 16:20
DX: S12.110A Anterior displaced Type II dens fracture, initial encounter for closed fracture (principal); S01.01XA Laceration without foreign body of scalp, initial encounter; L03.113 Cellulitis of right upper limb; N39.0 Urinary tract infection, site not specified; J44.9 Chronic obstructive pulmonary disease, unspecified; F41.9 Anxiety disorder, unspecified; Z79.899 Other long term (current) drug therapy; W19.XXXA Unspecified fall, initial encounter
CPT/HCPCS: 36415; 51701; 70450; 72125; 80053; 81003; 81015; 82550; 82553; 83605; 84484; 85025; 87040; 87077; 87086; 87186; 93005; 96365; 96366; 96375; A4353; J0696; J3370; J7050

== ENCOUNTER → 2018-07-19 | Day surgery (SDC) | payer MEDICARE, MEDICAID ==
[~2018-07-19] MED LIST changes: +Fentanyl 100 MCG/2 ML VIAL ONE; +Iopamidol 370 76% 50 ML VIAL FS ONE; +Ondansetron PF 4 MG/2 ML Vial ONE; +Piperacillin/Tazobactam 4.5 GM VIAL ONE
[2018-07-19 11:30] LABS: #Lymphocytes 0.9 thou/uL (1.20-3.40); #Monocytes 0.9 thou/uL (0.11-0.59); %Basophils 0.2 % (0.0-1.0); %Eosinophils 0.2 % (0.0-10.0); %Lymphocytes 9.8 % (21.0-51.0); %Neutrophils 79.8 % (42.0-75.0); Mean Corpuscular HGB CONC 31.8 g/dL (32.0-36.0); Mean Corpuscular Volume 97.4 fL (78.0-98.0); Mean Platelet Volume 8.7 fL (7.4-10.4); Platelet Count 156 thou/uL (130-400); RBC Distribution Width 12.1 % (11.5-14.5); Red Blood Cell (RBC) Count 4.19 mill/uL (4.20-5.40); White Blood Cell (WBC) Count 8.8 thou/uL (4.8-10.8)
[2018-07-19 11:52] LABS: ALT (SGPT) 14 U/L (8-55); AST (SGOT) 25 U/L (5-34); Alkaline Phosphatase 67 U/L (40-150); Anion Gap 14 mmol/L (10-20); BUN (Urea Nitrogen) 22 mg/dL (9.8-20.1); Bilirubin, Total 0.8 mg/dL (0.2-1.2); Calc. Creatinine Clearance 0 mL/min (70-130); Calcium 9.5 mg/dL (7.8-10.44); Carbon Dioxide 27 mmol/L (23-31); Chloride 101 mmol/L (98-107); Estimated GFR-MDRD 43; Globulin 3.5 g/dL (2.4-3.5); Glucose 106 mg/dL (83-110); Lipase 18 U/L (8-78); Protein, Total 7.5 g/dL (6.0-8.3); Sodium 138 mmol/L (136-145)
--- NOTE | 2018-07-19 12:24 | CT ---
CT abdomen and pelvis with IV contrast HISTORY: Abdominal pain. Nausea and vomiting. COMPARISON: 02/01/2017. FINDINGS: Mild atelectasis at the lung bases. Lobular cysts throughout the liver are similar in appea rolf the prior study. Gallbladder surgically absent with associated distention of the biliary system. Prominent calcification throughout the arterial structures. Urinary bladder is unremarkable. Degenerative changes throughout the lumbar spine. Just anterior to the duodenum and retroperitoneum are 2 vertically oriented oval small pockets air, m easuring up to 1.7 cm greatest diameter, around which bowel wall cannot be found. No free fluid or inflammation apparent. IMPRESSION: Small pockets of retroperitoneal gas, just anterior to the inferior vena cava, and outsid e of the duodenum. Perforated duodenal ulcer is the favored diagnosis. No evidence of intra or other complication. Findings were called to Dr. Pate in the emergency Department.
[2018-07-19 13:11] LABS: Bilirubin Negative (Negative); Blood, Urine Negative (Negative); Clarity CLOUDY (Clear); Glucose, Urine (Dipstick) Negative (Negative); Leukocyte Small (Negative); Nitrite Negative (Negative); Protein, Urine (Dipstick) Negative (Neg-Trace); Specific Gravity, Urine 1.041 (1.002-1.036); Urobilinogen 0.2 mg/dL (0.2-1.0)
[2018-07-19 13:15] LABS: Bacteria/HPF 4+ HPF (None Seen); Squamous Epithelial 0-3 HPF (0-3)
[2018-07-19 13:16] LABS: Pathc Cast-AUWi Flag 4.58 (0-2.49); Yeast-AUWi Flag 616.3 (0-25.0)
[2018-07-19 13:23] LABS: Hyaline Casts/LPF NONE SEEN LPF (0-3 Hyaline); Yeast-All Forms None Seen HPF (None Seen)
[2018-07-19 13:24] LABS: Manual Microscopic Reviewed? No Path Casts Seen
[2018-07-19 13:31] LABS: RBC/HPF None Seen HPF (0-3)
--- NOTE | 2018-07-19 14:25 | HP ---
HISTORY OF PRESENT ILLNESS: Elana Dennis is an 87-year-old female, mobile on a walker, [facility], [place], presents to the emergency room complaining of constipation, lower back pain. She was evaluated and her BUN and creatinine were 22 and 1.18 respectively. Sodium 138, potassium 4.0, CO2 is 27. Lipase is normal. Liver function tests normal. White count is 8, hemoglobin 13. Her differential is essentially normal. The patient underwent a CAT scan, IV contrast, noting two foci of air adjacent to the duodenum. There was no free fluid. No inflammatory changes. Dr. Pedro Pablo Barnes read this CAT scan. I then discussed the CAT scan with Dr. Jose Campbell, who is available at this time. The patient clinically denies having any abdominal pain or flank pain. All of her pain in her back is lower back, onset 3 days ago. She has not had any nausea or vomiting. ALLERGIES: CIPRO. SOCIAL HISTORY: Tobacco, never. Alcohol, never. MEDICATIONS: 1. Tramadol. 2. Zantac. 3. DuoNeb as needed. 4. Robitussin as needed. 5. Colace. 6. Tylenol Extra Strength for pain. PAST SURGICAL HISTORY: Laparoscopic cholecystectomy. PAST MEDICAL HISTORY: GERD, Parkinson's, anxiety. REVIEW OF SYSTEMS: Ten-point noncontributory. PHYSICAL EXAMINATION: VITAL SIGNS: Blood pressure 120/70, heart rate 70, respiratory rate 18. HEAD, EARS, EYES, NOSE, AND THROAT: Unremarkable. LUNGS: Clear to auscultation. CARDIAC: Regular rate and rhythm without murmur or gallop. ABDOMEN: Soft, nontender, nondistended, non-tympanitic. Good bowel sounds. EXTREMITIES: Unremarkable. ASSESSMENT AND PLAN: 1. Low back pain, constipation. This does not at all correlate with a perforated duodenal ulcer. The patient's exam is benign and suggesting a benign entity. She has two foci of air around the duodenum without inflammatory change, and without free fluid and it would be unlikely that she had a perforated ulcer. I have talked to Dr. Jose Campbell and we will repeat her CAT scan upper abdomen with oral contrast and make further recommendations after that. Pending these recommendations, if indeed, she does not have a perforated ulcer, she possibly could be treated for constipation and discharge home at [facility]. If she may, however, need to be observed. She might need to be admitted to the medical service. We will await repeat CAT scan abdomen with oral contrast. 2. Parkinson's. 3. Anxiety. 4. History of cholecystectomy. 5. Echocardiogram in February 2017, normal. No history of coronary artery disease. Job ID: [id number]
--- NOTE | 2018-07-19 16:18 | CT ---
CT Abdomen Pelvis WO Con: 07/19/2018 1:43 PM History: Retroperitoneal air seen on prior CT COMPARISON: 07/19/2018 Procedure: Multiple contiguous axial images were obtained and a CT of the abdomen and pelvis without IV contrast . Oral contrast was administered. Coronal reformats were performed. FINDINGS: This examination is limited for the evaluation of solid organs and vascular structures due to the lac k of intravenous contrast. Lower Chest: within normal limits. Abdomen: Liver: Scattered hypodensities are seen consistent with cysts. Bile Ducts: Normal caliber. Gallbladder: Removed Pancreas: within normal limits. Spleen: within normal limits. Adrenals: within normal limits. Kidneys: within normal limits. Contrast is seen in both renal collecting systems from recent contrast examination. Pelvis: Reproductive Organs: No pelvic masses. Atrophic uterus. Ureters: within normal limits. Bladder: within normal limits. Bowel: Normal caliber. Scattered diverticula in the colon. There is apparent thickening of the cecal wall which may be artifactual and secondary to mixing of the oral contrast with liquid stool in the right colon.. Mesenteric Lymph Nodes: No enlarged mesenteric lymph nodes. Peritoneum: No ascites or free air, no fluid collection. Vessels: Atherosclerotic changes . Retroperitoneum: within normal limits. The previously seen foci of air adjacent to the duodenum and i nferior vena cava are no longer present. Abdominal Wall: within normal limits. Bones: Degenerative changes are seen in the spine. IMPRESSION: 1. No retroperitoneal air or free air identified 2. Diverticulosis 3. Hepatic cysts
--- NOTE | 2018-07-19 16:51 | PRG ---
DATE OF SERVICE: 07/19/2018 Elana Dennis had a repeat CT scan of abdomen and oral contrast. The foci of air seen around about the duodenum were not apparent. These were either bowel gas or another process. There are no inflammatory changes, nothing to suggest perforated ulcer. The patient remains hemodynamically stable. Does not have any abdominal pain, but only complains of lower back pain and constipation. I have relayed the findings to the family. I have recommended that [facility] and she is on Colace. I would recommend she take MiraLAX twice a day, fiber once or twice a day, and in addition be given one time dose or p.r.n. dose of magnesium citrate and/or milk of magnesia. At this time, I will see them as needed, please call if necessary. Job ID: [id number]
== END ==
LOC: ERS 10:02 → SDC/OP 14:00
PROVIDERS: ATTEND Specialist
DX: K59.00 Constipation, unspecified (principal); M54.5 Low back pain; G20 Parkinson's disease; K21.9 Gastro-esophageal reflux disease without esophagitis; F41.9 Anxiety disorder, unspecified; Z79.899 Other long term (current) drug therapy; Z88.1 Allergy status to other antibiotic agents
CPT/HCPCS: 36415; 74176; 74177; 80053; 81003; 81015; 83605; 83690; 85025; 87040; 93005; J2405; J2543; J3010; Q9966; Q9967

== ENCOUNTER 2018-07-21 11:07 | Inpatient (IN) | payer MEDICARE, MEDICAID ==
[~2018-07-21 11:07] MED LIST changes: -Fentanyl 100 MCG/2 ML VIAL ONE; -Ondansetron PF 4 MG/2 ML Vial ONE; -Piperacillin/Tazobactam 4.5 GM VIAL ONE
[2018-07-21] MEDS ORDERED: Magnesium Citrate 300 ML BOT ONE (11:44)
[2018-07-21] MEDS ORDERED: Ondansetron PF 4 MG/2 ML Vial ONE (11:56)
[2018-07-21 12:09] LABS: #Basophils 0.1 thou/uL (0.0-0.2); #Eosinphils 0.1 thou/uL (0.0-0.7); #Lymphocytes 1.7 thou/uL (1.20-3.40); #Monocytes 1.4 thou/uL (0.11-0.59); #Neutrophils 8.9 thou/uL (1.40-6.50); %Basophils 0.8 % (0.0-1.0); %Eosinophils 0.4 % (0.0-10.0); %Lymphocytes 13.8 % (21.0-51.0); %Monocytes 11.8 % (0.0-10.0); %Neutrophils 73.2 % (42.0-75.0); Hemoglobin 13.7 g/dL (12.0-16.0); Mean Corpuscular HGB CONC 32.5 g/dL (32.0-36.0); Mean Corpuscular Hemoglobin 31.9 pg (27.0-31.0); Mean Corpuscular Volume 98.1 fL (78.0-98.0); Mean Platelet Volume 8.1 fL (7.4-10.4); Platelet Count 218 thou/uL (130-400); RBC Distribution Width 12.1 % (11.5-14.5); Red Blood Cell (RBC) Count 4.29 mill/uL (4.20-5.40); White Blood Cell (WBC) Count 12.2 thou/uL (4.8-10.8)
--- NOTE | 2018-07-21 12:33 | RAD ---
EXAM: XR Abdomen 2 View/1 View Cxr PROVIDED CLINICAL HISTORY: Abdominal pain and coffee-ground emesis. COMPARISON: Chest x-ray on 04/20/[address] abdomen and pelvis on 07/19/2018 FINDINGS: Cardiac silhouette and pulmonary vasculature are within normal limits. Calcifications again overlie t he right hemithorax which may represent calcification in the region of the costochondral junction in addition calcified granulomata. There is suggestion of tiny bilateral pleural effusions. Vascular calcifications are seen in an ectatic thoracic aorta. Degenerative changes of each shoulder are again seen with what appears to be resorption of the distal left clavicle which may be related to shiva or injury. No free intraperitoneal air seen beneath the hemidiaphragms. Dilated loops of small bowel are seen with residual contrast seen in loops of small bowel as well as the colon. Findings are likely due to either small bowel obstruction or ileus. The gabriel of loops of bowel are well-defined, but this is likely related to residual contrast lining the loops of bowel resulting in greater contrast. Again, no gas is seen beneath the hemidiaphragms on upright imaging. Degenerative changes are seen in the spine. IMPRESSION: Interval development of dilated loops of small bowel which may be related to developing small bowel o bstruction or ileus. There is greater delineation of gabriel of loops of small bowel which is felt to more likely be related to residual contrast lining loops of bowel as opposed to free intraperitoneal gas in the abdomen. However, if there is a clinical concern for free intraperitoneal gas or evidence of acute abdomen, CT scan of the abdomen would be warranted for further evaluation. Above findings were discussed with Dr. Wade on in the emergency department on 07/21/2018 at 1227 ho urs.
[2018-07-21 12:35] LABS: ALT (SGPT) 16 U/L (8-55); AST (SGOT) 23 U/L (5-34); Albumin 3.9 g/dL (3.4-4.8); Alkaline Phosphatase 64 U/L (40-150); Anion Gap 14 mmol/L (10-20); BUN (Urea Nitrogen) 36 mg/dL (9.8-20.1); Calc. Creatinine Clearance 0 mL/min (70-130); Calcium 9.2 mg/dL (7.8-10.44); Carbon Dioxide 27 mmol/L (23-31); Chloride 100 mmol/L (98-107); Estimated GFR-MDRD 47; Globulin 3.3 g/dL (2.4-3.5); Glucose 120 mg/dL (83-110); Potassium 4.1 mmol/L (3.5-5.1); Protein, Total 7.2 g/dL (6.0-8.3); Sodium 137 mmol/L (136-145)
--- NOTE | 2018-07-21 14:52 | CT ---
CT ABDOMEN AND PELVIS WITH IV CONTRAST 07/21/2018 CLINICAL INFORMATION: Abdominal pain, ileus. COMPARISON: CT scans of the abdomen on 07/19/2018 Technique: Multiple contiguous axial CT images are obtained through the abdomen and pelvis with IV contrast. Cor onal reformatted images are provided. FINDINGS: Lower Chest: Small bilateral pleural effusions and associated atelectasis are now present. Vessels: Vascular calcifications are seen in the abdominal aorta and involving the iliac arteries. Abdomen: Portal vein:Patent Gallbladder: There is evidence of prior cholecystectomy. Liver: Again noted are scattered hypodense lesions throughout each lobe of the liver most compatible with cysts. Pancreas: within normal limits. Spleen: within normal limits. Adrenals: within normal limits. Kidneys: Subcentimeter too small to characterize hypodense lesions are again seen in each kidney. Peritoneum: There was question of foci of gas in the retroperitoneum superior to the level of the duo denum on prior study. However, this is shown to represent a prominent diverticulum which is distended on today's exam. No free intraperitoneal gas or free fluid is seen in the abdomen or pelvis . No fluid collection is seen. Bowel: Loops of small bowel are now dilated and fluid-filled. Multiple loops of bowel measure up to 2 .7 cm; this does represent mild generalized dilatation loops of small bowel compared to prior exam. No focal transition point is seen. Residual contrast is seen within the colon. There is evidence of c olonic diverticulosis predominantly involving the sigmoid colon. The distal esophagus demonstrates what appears to be circumferential wall thickening on today's exami nation which was not seen on prior study. Mesentery and Retroperitoneum: No enlarged mesenteric or retroperitoneal lymph nodes. Abdominal Wall: within normal limits. Pelvis: Reproductive Organs: The uterus is small in size but within normal limits for patient's age. Pelvis within normal limits. Bladder: Urinary bladder is mostly decompressed. Bones: Multilevel degenerative changes are again seen within the spine. Compression fractures of the T12 and L2 vertebral bodies are again seen. IMPRESSION: 1. Interval development of mildly dilated fluid-filled loops of small bowel. A definite transition po int is not seen. Findings may be related to ileus or developing partial small bowel obstruction. 2. Circumferential wall thickening involving the distal esophagus. This was not seen on prior study. Findings could be related to esophagitis. 3. Small bilateral pleural effusions. 4. Colonic diverticulosis. 5. No free intraperitoneal gas is seen. 6. Indeterminate age compression fractures of the T12 and L2 vertebral bodies unchanged from prior st udy. 7. Additional findings as described above.
[2018-07-21] MEDS ORDERED: Lidocaine Viscous Sol 2% 15 ml UD Cup ONE (15:36)
[2018-07-21] MEDS ORDERED: Benzocaine 20% Spray 60 ML CAN ONE (15:36)
--- NOTE | 2018-07-21 19:15 | RAD ---
AP VIEW ABDOMEN 07/21/18 HISTORY: Coffee ground emesis. Abdominal pain. AP view abdomen obtained. EKG leads seen over the chest and abdomen. The NG tube is coiled in the distal esophagus folding back on itself extending back up into the thoracic esophageal region. This should be pulled back and rep ositioned to be in good position. There is abnormal dilatation of the small bowel. A moderate amount of radiopaque contrast seen in th e colon. IMPRESSION: Dilated loops of small bowel with NG tube and not in normal position, distal tip in the stomach. The NG tube appears to be coiled in the esophagus. POS: [facility]
[2018-07-21 19:44] VITALS: BMI 16.8
[2018-07-21] MEDS: Dextrose 5 %-0.45 % NaCl 1,000 ML IV SCH (23:13)
[2018-07-21] MEDS ORDERED: cefTRIAXone\\ROCEPHIN 1 GM in Sodium Chloride 0.9% 100 ML IVPB SCH (23:30)
[2018-07-22] MEDS: Polyethylene Glycol 3350 17 GM Packet PO SCH (07:58)
[2018-07-22] MEDS: Dextrose 5 %-0.45 % NaCl 1,000 ML IV SCH (12:30)
--- NOTE | 2018-07-22 12:41 | RAD ---
XR Abdomen 2 View 2 view abdomen series CLINICAL INDICATION: Pain FINDINGS: Patchy density overlies the left lung base, incompletely assessed No free air. There is moderate distention of loops of bowel with differential air-fluid levels IMPRESSION: Distended bowel differential air-fluid levels indicating obstruction. Correlate clinicall y.
[2018-07-22] MEDS ORDERED: Pantoprazole 40 MG VIAL IVP SCH (14:00)
[2018-07-22] MEDS: cefTRIAXone\\ROCEPHIN 2 GM in Sodium Chloride 0.9% 100 ML IVPB SCH (14:41)
--- NOTE | 2018-07-22 22:22 | HP ---
CHIEF COMPLAINT: Abdominal pain, constipation. HISTORY OF PRESENT ILLNESS: Ms. Dennis is an 87-year-old female with past medical history of Parkinson disease, COPD, chronic back pain, came because of severe abdominal pain and marked constipation for a week. The patient did not have any nausea or vomiting. The patient was seen in the ER couple of days ago, had abdominal CT done, showed evidence of constipation, no bowel obstruction, so she was released and sent back, but the patient continued to have a lot of pain, did not have BM at the long-term for almost 8 days, nothing was helping, but the patient vomited x2 at the long-term, which was coffee-grounds emesis, so in view of that, the patient was sent to the ER again. In the ER, the patient was evaluated and found to have severe constipation with fecal impaction. Fecal impaction was managed in the ER. The patient was given magnesium citrate as well as enema. After enema, she had large BM. Her CT scan of the abdomen was done, showed possible small bowel obstruction, so in view of that, the patient was kept n.p.o., started fluids, and admitted for further evaluation and management. The patient also received Zofran for nausea and vomiting. PAST MEDICAL HISTORY: 1. Parkinson disease. 2. Anxiety disease. 3. COPD by history. 4. Gastroesophageal reflux disease. 5. Generalized weakness. The patient is status post cholecystectomy. CURRENT MEDICATIONS: The patient is on, 1. Ranitidine 150 b.i.d. 2. Tramadol p.r.n. 3. colace p.r.n. 4. Multivitamin daily. 5. DuoNeb q.i.d. p.r.n. ALLERGIES: CIPRO. FAMILY HISTORY: Nothing contributory. SOCIAL HISTORY: The patient lives in a long-term. No history of smoking. No history of alcohol intake. REVIEW OF SYSTEMS: CARDIOVASCULAR: No chest pain. No shortness of breath. RESPIRATORY: No fever or cough. GASTROINTESTINAL: Has abdominal pain, distention, constipation, and vomiting. CENTRAL NERVOUS SYSTEM: No headache. PHYSICAL EXAMINATION: GENERAL: The patient is alert, awake, and oriented x2. VITAL SIGNS: Temperature 98, pulse 87, respirations 20, blood pressure 139/60. HEENT: Head is normocephalic and atraumatic. Pupils are equal and reactive. Nasopharynx is pale and dry. Hard and soft palate, no lesions. SKIN: Turgor decreased. NECK: Supple. No JVD. LUNGS: Breath sounds diminished bilaterally. Percussion dull bilaterally. No rales or rhonchi. HEART: S1 and S2 regular. ABDOMEN: Soft. Mild distention present remotely, tender in the lower abdomen, but no guarding, no rigidity. Bowel sounds are sluggish. Rectal exam done and revealed a hard impacted stool. LABORATORY DATA: CBC shows WBC 12, hemoglobin 13, hematocrit 42, and platelets 218. Metabolic panel; sodium 137, potassium 4, chloride 100, CO2 of 27, BUN is 36, creatinine 1, glucose 120. CT abdomen showed mildly dilated fluid-filled loops of small bowel. Finding may suggest partial small-bowel obstruction or ileus. ASSESSMENT: 1. Severe constipation with fecal impaction. 2. Possible partial small bowel obstruction. 3. Urinary tract infection. 4. Abdominal pain and back pain. 5. Parkinson disease. 6. History of chronic obstructive pulmonary disease. 7. Anxiety disorder. 8. Gastroesophageal reflux disease. PLAN: 1. Vital signs q.4. 2. Activities as tolerated. 3. Allergies, Cipro. 4. IV fluid, half-normal at 80 mL/h. 5. MiraLAX 17 g daily. 6. Diet, clear liquids. 7. Rocephin 2 g IV piggyback daily. 8. Continue long-term medications. 9. Started on Protonix 40 mg IV piggyback daily. 10. The patient is DNR. Job ID: [id number] [facility]
[2018-07-23] MEDS: Dextrose 5 %-0.45 % NaCl 1,000 ML IV SCH ×2 (02:00→14:20)
[2018-07-23 06:39] LABS: #Eosinphils 0.3 thou/uL (0.0-0.7); #Lymphocytes 1.1 thou/uL (1.20-3.40); #Monocytes 1.1 thou/uL (0.11-0.59); #Neutrophils 5.5 thou/uL (1.40-6.50); %Basophils 0.2 % (0.0-1.0); %Eosinophils 3.3 % (0.0-10.0); %Lymphocytes 13.4 % (21.0-51.0); %Monocytes 13.8 % (0.0-10.0); %Neutrophils 69.3 % (42.0-75.0); Hemoglobin 12.4 g/dL (12.0-16.0); Mean Corpuscular HGB CONC 32.2 g/dL (32.0-36.0); Mean Corpuscular Hemoglobin 31.9 pg (27.0-31.0); Mean Corpuscular Volume 99.2 fL (78.0-98.0); Mean Platelet Volume 8.7 fL (7.4-10.4); Platelet Count 188 thou/uL (130-400); Red Blood Cell (RBC) Count 3.89 mill/uL (4.20-5.40)
[2018-07-23 06:56] LABS: Anion Gap 12 mmol/L (10-20); BUN (Urea Nitrogen) 26 mg/dL (9.8-20.1); Calc. Creatinine Clearance 33 mL/min (70-130); Calcium 8.2 mg/dL (7.8-10.44); Carbon Dioxide 22 mmol/L (23-31); Chloride 108 mmol/L (98-107); Estimated GFR-MDRD 63; Glucose 112 mg/dL (83-110); Potassium 3.6 mmol/L (3.5-5.1); Sodium 138 mmol/L (136-145)
[2018-07-23] MEDS: Sodium Chloride 0.9% (PF) 10 ML VIAL FS PRN (08:32)
[2018-07-23] MEDS: Pantoprazole 40 MG VIAL IVP SCH (08:32)
[2018-07-23] MEDS: Polyethylene Glycol 3350 17 GM Packet PO SCH (10:59)
[2018-07-23] MEDS: Acetaminophen 325 MG TAB PO PRN (11:03)
--- NOTE | 2018-07-23 12:36 | PRG ---
DATE OF SERVICE: 07/23/2018 SUBJECTIVE: This is an 87-year-old very fragile looking, female, hospitalized over the weekend because of some vague abdominal pain and constipation. The patient was in the ER where she had an abdominal CAT scan. The CAT scan shows dilated loops of small bowel, but the contrast was seen in the colon. She also had some bowel movements yesterday. She is very weak and lethargic. She is better, arousable, but finally becomes awake and then she states she wants to eat and she was hungry. She denies abdominal pain, nausea, or vomiting. Apparently, she was on a clear liquid diet as she coughing spell, and they decided to keep her n.p.o. and for a swallow study. This morning, she was seen in the room along with the patient's son. The clinical condition remain unchanged from yesterday. She is weak, but does wake up, and she states she is hungry and she wants to eat. OBJECTIVE: VITAL SIGNS: Afebrile, pulse is 95, and blood pressure 109/67. CARDIOVASCULAR SYSTEM: First and second heart sounds heard. LUNGS: Clear to auscultation. ABDOMEN: Soft. Abdomen is nondistended. Abdomen is nontender. Even the patient was asked, she said she has abdominal pain. She has like hyperactive bowel sounds. LABORATORY DATA: From today, CBC; WBC 8000, hemoglobin 12.4, hematocrit 38.6, platelet count 188,000, polymorphs 69, lymphocytes 13, monocytes 13. Chem panel shows a BUN dropping down to 26 and creatinine 0.85. Lytes are normal. CLINICAL IMPRESSION: 1. The patient has mostly ileus and bowel obstruction. The abdomen exam is very benign. Abdomen is nondistended. Abdomen is nontender. She does have hyperactive bowel sounds. 2. Dehydration, be corrected. 3. Parkinson disease. 4. Chronic obstructive pulmonary disease. RECOMMENDATIONS: I would restart the patient on diet, may be mechanical soft diet that she wants to eat. contrast for the CAT scan 2 days ago. I believe, Dr. Lance, her primary care doctor, will decide about the feeding status. In the meantime, continue IV fluids and supportive care. Job ID: [id number]
[2018-07-23] MEDS: cefTRIAXone\\ROCEPHIN 2 GM in Sodium Chloride 0.9% 100 ML IVPB SCH (14:20)
--- NOTE | 2018-07-23 17:50 | RAD ---
TWO VIEWS ABDOMEN 07/23/18 HISTORY: Bowel obstruction. Supine and upright views of the abdomen is obtained. Comparison made to previous exam from 07/22/18. Two views abdomen demonstrate air fluid levels seen in the small bowel compatible with bowel obstruc tion. The small bowel loops remain dilated. Contrast including radiopaque contrast and gas is seen in the colon. No evidence of free intraperitoneal air seen. IMPRESSION: Continued small bowel dilatation concerning for bowel obstruction. POS: [facility]
[2018-07-24] MEDS: Dextrose 5 %-0.45 % NaCl 1,000 ML IV SCH ×3 (01:50→19:40)
[2018-07-24 06:42] LABS: Anion Gap 9 mmol/L (10-20); BUN (Urea Nitrogen) 18 mg/dL (9.8-20.1); Calc. Creatinine Clearance 35 mL/min (70-130); Calcium 8.2 mg/dL (7.8-10.44); Carbon Dioxide 26 mmol/L (23-31); Chloride 107 mmol/L (98-107); Estimated GFR-MDRD 69; Glucose 96 mg/dL (83-110); Potassium 3.6 mmol/L (3.5-5.1); Sodium 138 mmol/L (136-145)
[2018-07-24] MEDS: Polyethylene Glycol 3350 17 GM Packet PO SCH (08:45)
[2018-07-24] MEDS: Pantoprazole 40 MG VIAL IVP SCH (08:46)
[2018-07-24] MEDS: Acetaminophen 325 MG TAB PO PRN (11:09)
[2018-07-24] MEDS: Ondansetron PF 4 MG/2 ML Vial SLOW IVP PRN (11:11)
--- NOTE | 2018-07-24 11:16 | CON ---
DATE OF CONSULTATION: 07/22/2018 REASON FOR CONSULTATION: Constipation, abnormal CAT scan of abdomen showing possible SBO. There is also mention of abdominal pain. HISTORY OF PRESENT ILLNESS: Ms. Elana Dennis is a very pleasant, fragile looking, elderly female, hospitalized last night through the ER. The patient is a prison resident. She was brought to the ER 2 days ago with some vague abdominal pain and back pain. The patient had abdominal CAT scan done and what was read as possibly free air in the abdomen. She was seen by Dr. Funes for surgical evaluation. Her abdominal exam is very benign and did not feel any perforation. She also complained more of back pain and abdominal pain. She had another CAT scan of the abdomen with contrast, which came back negative. There is no evidence of any free perforation. The patient was sent home. Apparently, she has not been eating well for the last several days. She had no BM for the last several days. She was sent back to the ER yesterday from the prison. She had another CAT scan of abdomen done. The CAT scan shows dilation of small bowel loops and radiologists suggested could be SBO. However, the contrast study, which was done on Tuesday, the contrast is actually seen in the colon. The patient had a stool yesterday, small stool last night. This morning, she has some watery stools. The patient appears weak, but however, she is communicative. The patient was seen in the room along with the patient's son, Sundar. The son tells me she seemed more perky and more awake and alert and very active. However, she has not been eating well over the last several days and he feels it could be she is feeling weak because of not enough food intake. The patient denies again abdominal pain, no nausea, no vomiting, etc. She has no relevant history. She complained more of back pain than actually abdominal pain. This was same information, Dr. Funes, got from the patient when he saw her 2 days ago in the ER. ALLERGIES: CIPRO. SOCIAL HISTORY: The patient is a prison resident. Does not smoke or drink alcohol. MEDICAL ILLNESSES: 1. Parkinson disease. 2. Chronic acid reflux. 3. Anxiety. 4. Osteoarthritis. 5. Laparoscopic cholecystectomy. MEDICATION LIST: Reviewed, which include; 1. Tramadol. 2. Zantac. 3. DuoNeb. 4. Robitussin as needed. 5. Colace. 6. Tylenol Extra Strength. 7. . FAMILY HISTORY: Nonrelevant. REVIEW OF SYSTEMS: Ten-point system review; HEENT: Head, no headache. No dizziness. No syncope. Eyes, no diplopia. No impaired vision. Ears, no ear pain or any bleeding. Throat, no sore throat. No dysphagia. NECK: No neck pain or stiffness. LUNGS: No chronic coughing, hemoptysis, or dyspnea. CARDIOVASCULAR SYSTEM: No chest pain. No palpitation. No orthopnea or PND. GI: No abdominal pain. MUSCULOSKELETAL: History of back pain . PHYSICAL EXAMINATION: GENERAL: She is a very fragile, elderly female, appears very comfortable. When asked questions, she states she has no abdominal pain. VITAL SIGNS: Her vital signs are actually stable. Afebrile, pulse is 85, and blood pressure is 140/71. HEENT: Conjunctivae clear. NECK: Supple. No adenitis or thyromegaly noted. CARDIOVASCULAR SYSTEM: First and second heart sounds heard. LUNGS: Clear to auscultation. ABDOMEN: Soft. Abdomen is nondistended. On deep palpation, she has been nontender. She does not wince and she says she has no abdominal pain. EXTREMITIES: Reveal no edema. LABORATORY DATA: The lab data shows CBC; WBC 12,200, hemoglobin 13.7, hematocrit 42.1, MCV 98.1, platelet count 218,000, polymorphs 73, lymphocytes 30, and monocytes 11. Serum chemistries: Sodium is 137; potassium 4.1; chloride 100; bicarb 27; BUN has gone up to 36, which was normal 2 days ago 22; creatinine 1.10; glucose 120; calcium 9.2; bilirubin 1; AST 23; ALT 16; alkaline phosphatase 64; and albumin 3.9. Abdominal CAT scan shows nonspecific dilation of small bowel loops. Question of SBO. However, physical finding does not suggest she has SBO. Also the contrast study from 2 days ago shows the dye to be in the colon. CLINICAL IMPRESSION: 1. An 87-year-old female with Parkinson disease, presents with more of back pain. She has had CAT scan over the last 48 hours. The CAT scan is unremarkable except for some dilation of small bowel loops, which is nonspecific. I think she has no clinical history of small bowel obstruction. Also, she is having stools this morning. She would possibly have ileus. She has more of back pain. 2. Dehydration as BUN is 36 from 22 two days ago. Her weakness and fatigue may be because of dehydration. RECOMMENDATION: 1. Clear liquid diet. 2. Continue IV fluids. 3. Advance diet as tolerated. Job ID: [id number]
[2018-07-24] MEDS: traMADol HCl 50 MG TAB PO PRN (13:57)
--- NOTE | 2018-07-24 15:25 | RAD ---
XR Abdomen 2 View 2 view abdomen series CLINICAL INDICATION: Pain FINDINGS: Lung basesreveal mild pleural-based density and parenchymal opacity of the inferior left chest. No free air. Contrast is seen to the level of the rectum. There is persistence of abnormal distention of small bowel, with differential air-fluid levels. IMPRESSION: Persistent radiographic findings of mechanical bowel obstruction. Correlate clinically.
[2018-07-24] MEDS: cefTRIAXone\\ROCEPHIN 2 GM in Sodium Chloride 0.9% 100 ML IVPB SCH (15:58)
[2018-07-25] MEDS: traMADol HCl 50 MG TAB PO PRN (06:05)
--- NOTE | 2018-07-25 06:32 | PRG ---
DATE OF SERVICE: 07/24/2018 SUBJECTIVE: Ms. Elana Dennis is a very pleasant, very fragile, 87-year-old female, hospitalized on CAT scan. However, the physical finding does not match her CAT scan description. Her abdomen is very flat, nondistended. Obviously, has no abdominal pain. There is no nausea or vomiting. She is having bowel movements. She has had repeat abdominal series, and again dilation of the small bowel loops on fluid level. The patient has no abdominal pain, but she has more of back pain. An attempt was made for small bowel series today, but it was not successful because she started gagging and gagging, unable to swallow. An attempt was made for the NG tube, attempt not successful. The patient was brought back to the floor. PHYSICAL EXAMINATION: GENERAL: Appears comfortable. However, she is somewhat sleepy and very slow to respond, but she actually reacts when talks to you. VITAL SIGNS: Afebrile. Pulse is 77, blood pressure 110/71. CARDIOVASCULAR SYSTEM: Within normal limits. LUNGS: Within normal limits. ABDOMEN: Soft. Abdomen is nondistended. Abdomen is nontender. LABORATORY DATA: From today, the Chem-7 shows BUN is coming down to 18. Her lytes are normal. CLINICAL IMPRESSION: Radiographic evidence of small bowel obstruction with dilatation of small bowel loop. However, she is not having abdominal pain, nausea, or vomiting, and abdomen is nondistended. She also had two stools last night. An attempt to do a small bowel series was unsuccessful as she was not able to do the prep. RECOMMENDATION: 1. Pureed diet today. 2. May try the small bowel series again tomorrow after an NG tube placement. Job ID: [id number]
[2018-07-25 06:39] LABS: #Eosinphils 0.2 thou/uL (0.0-0.7); #Lymphocytes 1.3 thou/uL (1.20-3.40); #Monocytes 0.9 thou/uL (0.11-0.59); #Neutrophils 4.5 thou/uL (1.40-6.50); %Basophils 0.1 % (0.0-1.0); %Lymphocytes 19.3 % (21.0-51.0); %Neutrophils 64.6 % (42.0-75.0); Hemoglobin 11.5 g/dL (12.0-16.0); Mean Corpuscular HGB CONC 31.6 g/dL (32.0-36.0); Mean Corpuscular Hemoglobin 31.6 pg (27.0-31.0); Mean Platelet Volume 7.9 fL (7.4-10.4); Platelet Count 200 thou/uL (130-400); Red Blood Cell (RBC) Count 3.63 mill/uL (4.20-5.40); White Blood Cell (WBC) Count 6.9 thou/uL (4.8-10.8)
[2018-07-25 07:00] LABS: Anion Gap 12 mmol/L (10-20); BUN (Urea Nitrogen) 14 mg/dL (9.8-20.1); Calc. Creatinine Clearance 34 mL/min (70-130); Calcium 8.2 mg/dL (7.8-10.44); Carbon Dioxide 23 mmol/L (23-31); Chloride 104 mmol/L (98-107); Estimated GFR-MDRD 67; Glucose 99 mg/dL (83-110); Potassium 3.5 mmol/L (3.5-5.1); Sodium 135 mmol/L (136-145)
[2018-07-25] MEDS: Polyethylene Glycol 3350 17 GM Packet PO SCH (08:36)
[2018-07-25] MEDS: Sodium Chloride 0.9% (PF) 10 ML VIAL FS PRN (08:38)
[2018-07-25] MEDS: Pantoprazole 40 MG VIAL IVP SCH (08:38)
--- NOTE | 2018-07-25 11:15 | PRG ---
DATE OF SERVICE: 07/25/2018 SUBJECTIVE: This is an 87-year-old female, hospitalized over the weekend with findings as viewed on CAT scan. Interestingly, the patient actually came to the ER because of back pain or abdominal pain. The patient has had multiple CAT scans over the hospital because of it. The CAT scan shows some dilation of the small bowel loops, but the patient has no symptoms of small bowel obstruction. No nausea. No vomiting. She actually had bowel movements. She complains more of back pain. This morning, she is actually more awake and tried to talk. However, her voice is hoarse and difficult to understand. I did speak to her nurse and she says the patient ate recently the last night and this morning. She had some stool last night. Attempt to review small bowel series were unsuccessful because the patient was gagging and coughing during the administration of contrast and the NG tube could not be placed. Lab data, CBC and chem-7 are actually normal. OBJECTIVE: GENERAL: She is a very fragile looking elderly female, appears very comfortable. She is more awake today. VITAL SIGNS: Stable. CARDIOVASCULAR SYSTEM: Within normal limits. LUNGS: Within normal limits. ABDOMEN: Soft. Abdomen is nondistended. Abdomen is nontender. No rebound or guarding. LABORATORY DATA: Shows CBC; WBC 6900, hemoglobin 11.5, hematocrit 36.3, and MCV 100. Chem-7 is actually normal at sodium 135, potassium 3.5, chloride 104, bicarb 23, BUN is 14, and creatinine 0.50. RECOMMENDATION: Increase water intake by magnesium . Job ID: [id number]
[2018-07-25] MEDS: Dextrose 5 %-0.45 % NaCl 1,000 ML IV SCH ×2 (12:00→20:45)
[2018-07-25] MEDS: cefTRIAXone\\ROCEPHIN 2 GM in Sodium Chloride 0.9% 100 ML IVPB SCH (14:37)
[2018-07-25] MEDS ORDERED: Potassium Chloride 20 MEQ TAB PO SCH (18:45)
[2018-07-25] MEDS: Ondansetron PF 4 MG/2 ML Vial SLOW IVP PRN (20:25)
[2018-07-25] MEDS ORDERED: Potassium Chloride 20 MEQ in Premix Bag 1 BAG IVPB SCH (21:30)
[2018-07-26] MEDS: Polyethylene Glycol 3350 17 GM Packet PO SCH (08:00)
[2018-07-26] MEDS: Dextrose 5 %-0.45 % NaCl 1,000 ML IV SCH ×2 (08:04→15:34)
--- NOTE | 2018-07-26 11:04 | RAD ---
Exam: ONE VIEW ABDOMEN: COMPARISON: 07/21/2018, 07/24/2018 FINDINGS: Nasogastric tube in the left upper quadrant. Dilated small bowel loops are identified in th e central abdomen. There is residual contrast noted in the colon. Contrast has been present since the CT examination performed on 07/21/2018. Persistent contrast in the colon limits evaluation for a G astrografin small bowel series. Persistent small bowel dilatation is noted, worrisome for a long-standing small bowel obstruction. Consider general surgical consultation. IMPRESSION: Long-standing small bowel dilatation, worrisome for small bowel obstruction. Persistent c ontrast in the colon. Consider general surgical consultation. Results of study discussed with Dr. Lance on 07/26/2018 at 10:58 AM Code CR Transcribed Date/Time: 07/26/2018 11:10 AM
[2018-07-26] MEDS ORDERED: MD-Gastroview 120 ML BOT ONE (11:10)
[2018-07-26] MEDS: Ondansetron PF 4 MG/2 ML Vial SLOW IVP PRN (15:33)
[2018-07-26] MEDS: cefTRIAXone\\ROCEPHIN 2 GM in Sodium Chloride 0.9% 100 ML IVPB SCH (15:33)
--- NOTE | 2018-07-26 15:34 | PRG ---
DATE OF SERVICE: 07/26/2018 SUBJECTIVE: This is an 87-year-old female hospitalized over the weekend on Tuesday because of back pain and abnormal CAT scan of abdomen. The patient had no abdominal pain. No nausea and no vomiting. The abdominal CAT scan done showed dilation of small bowel loops and possibly SBO. However, the contrast did go down to colon. The patient has had no abdominal pain, nausea, or vomiting over the last 4 days. Plan is being made to send her back to [facility] today, but last night she had an episode of vomiting. She vomited about 200 mL of fluid. She had an NG tube placed and she drained only about 200 mL overnight. The patient is supposed to be having small bowel series done today. Initially, the radiologist did not feel that the small bowel series could be done because of the contrast from the CAT scan in the colon. I did talk to Dr. Escalera and he agreed to do small bowel series later on today. Also, a Surgical consult has been ordered. PHYSICAL EXAMINATION: GENERAL: Appears comfortable. VITAL SIGNS: She is afebrile. Pulse is 76 and blood pressure 143/72. CARDIOVASCULAR SYSTEM: Within normal limits. LUNGS: Within normal limits. ABDOMEN: Soft. Nontender. No new findings on abdominal exam. PLAN: 1. Small bowel series today through the NG tube. 2. Surgical consult. Job ID: [id number]
--- NOTE | 2018-07-26 19:51 | RAD ---
Small bowel follow-through: 07/26/2018 HISTORY: Small bowel obstruction FINDINGS: The patient was administered Gastrografin via the nasogastric tube. 15 and 30 minute imagin g demonstrates Gastrografin within the stomach and duodenum. At 45 minutes there is contrast media within nondilated proximal small bowel. Two-hour imaging demonstrates contrast media within dilated l oops of small bowel within the abdomen and pelvis. On 3 hour and 4 hour imaging there is persistent dilated stable contrast filled small bowel. At 5 hours, the contrast media remains within dilated sma ll bowel, and has not reached the colon. At 7.5 hours the contrast media extends into the colon. IMPRESSION: Dilated small bowel throughout the abdomen/pelvis with markedly delayed transit to the co lucio, suggesting a high-grade partial small bowel obstruction. Recommend a follow-up K[facility] on the morning of 07/27/2018 for further assessment.
--- NOTE | 2018-07-27 01:34 | HP ---
HISTORY OF PRESENT ILLNESS: Elana Dennis is an 87-year-old female, DNR, who I saw in the emergency room on 07/19/2018. She was seen in the emergency room on that occasion for lower back pain and constipation. She was sent from the detention. In the emergency room, she had a normal white count. Her CAT scan revealed a questionable two foci of free air around the duodenum. It raised the question of a perforated ulcer; however, there was no inflammatory changes. No free fluid and no other significant findings. Her abdominal exam was normal. Her vital signs were normal. She was afebrile. CAT scan did reveal significant amount of constipation. We then repeated the noncontrast CAT scan with oral contrast and the two foci of air read out as perforated duodenal ulcer had disappeared. The patient was sent home with stool softeners and laxatives. She however returned to the hospital, 07/21/[address] and was admitted by Dr. Lance. She was seen in consultation by Dr. Henderson. She was admitted because of abdominal pain and constipation. There was no nausea or vomiting. The patient had 2 episodes of vomiting in the detention, reportedly coffee-ground emesis and she returned to the operating room. She was found to have severe constipation and fecal impaction and she was disimpacted in the emergency room. She was given magnesium citrate as well as an enema and she had a large bowel movement. Repeat CAT scan of the abdomen and pelvis revealed some dilated small bowel loops without a transition point. PAST MEDICAL HISTORY: The patient has history of Parkinson disease, anxiety, COPD, GERD, and generalized weakness. PAST SURGICAL HISTORY: Significant for a laparoscopic cholecystectomy. TOBACCO: None. ALCOHOL: None. MEDICATIONS: In the detention include; 1. Tramadol. 2. Ranitidine. 3. DuoNebs. 4. Robitussin. 5. Colace. 6. Tylenol Extra Strength. PHYSICAL EXAMINATION: VITAL SIGNS: Height 5 feet 5 inches, weight 101 pounds, BMI 16, temperature 97.9, heart rate 76, blood pressure 124/77. LUNGS: Clear to auscultation. CARDIAC: Regular rhythm. No murmur or gallop. ABDOMEN: Distended, tympanitic. Diminished bowel sounds. EXTREMITIES: Unremarkable. LABORATORY DATA: The patient's CAT scan this hospitalization revealed the above findings without acute findings noted. She did have some dilated loops of small bowel with air-fluid levels. Since been in the hospital on 07/21, she has had multiple abdominal x-rays, but more recently underwent a small bowel follow-through today. Since starting the small bowel follow-through this morning, she has had two large bowel movements, but had an episode of emesis when she had been moved to go to x-ray to complete the study. She does have some residual contrast in her colon from the CAT scan. A 4-hour film does show some progression of contrast toward the colon. The patient's NG tube overnight was 300 mL. ASSESSMENT AND PLAN: An 87-year-old female, DNR, detention with severe Parkinson disease, has what appears to be more likely an ileus. I would continue the small bowel follow-through, leave the NG tube clamped, obtain a 3-view abdominal x-ray in the morning and if she has vomiting, would place the NG tube back to suction tonight. I will follow her along with you. I think it is unlikely that she will need an operation. Job ID: [id number]
[2018-07-27] MEDS: Dextrose 5 %-0.45 % NaCl 1,000 ML IV SCH ×2 (05:33→21:35)
[2018-07-27 05:56] LABS: Band 5 % (5-11); Hemoglobin 11.5 g/dL (12.0-16.0); Hypochromia SLIGHT = 6-15 cells (100X) (0-5/hpf); Lymphocytes 31 % (21-51); MDiff Complete? YES; Mean Corpuscular HGB CONC 32.3 g/dL (32.0-36.0); Mean Corpuscular Volume 99.2 fL (78.0-98.0); Mean Platelet Volume 7.7 fL (7.4-10.4); Metamyelocyte 1 % (0-0); Monocytes 7 % (0-10); Neutrophil 56 % (42-75); Platelet Count 208 thou/uL (130-400); Platelet Morphology Comment Appears Adequate; RBC Distribution Width 11.8 % (11.5-14.5); Red Blood Cell (RBC) Count 3.61 mill/uL (4.20-5.40)
[2018-07-27 06:07] LABS: ALT (SGPT) 19 U/L (8-55); AST (SGOT) 16 U/L (5-34); Albumin 3.1 g/dL (3.4-4.8); Alkaline Phosphatase 51 U/L (40-150); Anion Gap 8 mmol/L (10-20); BUN (Urea Nitrogen) 11 mg/dL (9.8-20.1); Bilirubin, Total 0.4 mg/dL (0.2-1.2); Calc. Creatinine Clearance 33 mL/min (70-130); Calcium 8.4 mg/dL (7.8-10.44); Carbon Dioxide 29 mmol/L (23-31); Chloride 105 mmol/L (98-107); Estimated GFR-MDRD 65; Globulin 2.5 g/dL (2.4-3.5); Glucose 104 mg/dL (83-110); Potassium 3.1 mmol/L (3.5-5.1); Protein, Total 5.6 g/dL (6.0-8.3); Sodium 139 mmol/L (136-145)
[2018-07-27] MEDS: Polyethylene Glycol 3350 17 GM Packet PO SCH (08:48)
--- NOTE | 2018-07-27 10:09 | RAD ---
TWO VIEWS OF THE ABDOMEN: COMPARISON: 07/24/2018. HISTORY: Small bowel obstruction versus ileus. FINDINGS: Supine and decubitus views of the abdomen show contrast still seen in the colon from previous contras t examination. No significant distention of small bowel loops is appreciated on this exam. An NG tu be is seen in the stomach. Air fluid levels are seen within the colon on decubitus film. No free ai r is identified. IMPRESSION: The contrast has passed through the small bowel into the colon. These findings are consistent with e ither partial small bowel obstruction or ileus. POS: [facility]
[2018-07-27] MEDS: traMADol HCl 50 MG TAB PO PRN (13:36)
--- NOTE | 2018-07-27 13:50 | PDOC.PN ---
- Subjective Encounter Start Date: 07/27/18 Encounter Start Time: 07:00 Pt seen for followup re: ileus. Pt is nonverbal, unable to complete ROS. - Objective Resuscitation Status - Order Detail: 07/22/18 13:42 Resuscitation Status Routine Resuscitation Status: DNAR: NO Resuscitation Discussed with: Patient and her son by Dr. Natalio GREENWOOD Reviewed: Yes Vital Signs & Weight: Vital Signs (12 hours) Temp Pulse Resp BP Pulse Ox 07/27/18 08:00 96 07/27/18 07:55 98.0 F 85 16 108/70 96 Weight Admit Weight 101 lb 4.8 oz Weight 101 lb 4.8 oz I&O: 07/26/18 07/27/18 07/28/18 06:59 06:59 06:59 Intake Total 960 860 Output Total 300 50 Balance 660 810 Result Diagrams: 07/27/18 05:23 07/27/18 05:23 Additional Labs: Labs reviewed by me Phys Exam - Physical Examination Constitutional: NAD HEENT: moist MMs Neck: supple Respiratory: clear to auscultation bilateral Cardiovascular: RRR Gastrointestinal: soft sluggish bowel sounds Neurological: moves all 4 limbs Deviation from normal: Unable to assess Dx/Plan (1) Ileus Code(s): K56.7 - ILEUS, UNSPECIFIED Status: Acute Comment: await imaging (2) Hypokalemia Code(s): E87.6 - HYPOKALEMIA Status: Acute Comment: replace potassium (3) COPD (chronic obstructive pulmonary disease) Status: Chronic Comment: stable - Plan * . Review of Systems - Medications/Allergies Allergies/Adverse Reactions: Allergies Allergy/AdvReac Type Severity Reaction Status Date / Time ciprofloxacin [From Cipro] Allergy Verified 01/29/17 20:14 Medications: Current Medications Acetaminophen (Tylenol) 650 mg PO Q4H PRN PRN Reason: Headache/Fever or Pain Last Admin: 07/24/18 11:09 Dose: 650 mg Albuterol/Ipratropium (Duoneb) 3 ml NEB QIDPRN PRN PRN Reason: SOB &/or Wheezing Ceftriaxone Sodium 2 gm/ (Sodium Chloride) 100 mls @ 200 mls/hr IVPB Q24HR DEMI Last Admin: 07/26/18 15:33 Dose: 100 mls Dextrose/Sodium Chloride (D5 1/2 Ns) 1,000 mls @ 80 mls/hr IV .[id number] [facility] Last Admin: 07/27/18 05:33 Dose: 1,000 mls Lactulose (Lactulose) 20 gm PO BID [facility] Last Admin: 07/27/18 08:48 Dose: Not Given Metoclopramide HCl (Reglan) 5 mg PO ACHS [facility] Ondansetron HCl (Zofran) 4 mg SLOW IVP Q6H PRN PRN Reason: Nausea/Vomiting Last Admin: 07/26/18 15:33 Dose: 4 mg Polyethylene Glycol (Miralax) 17 gm PO DAILY [facility] Last Admin: 07/27/18 08:48 Dose: Not Given Potassium Chloride (K-Dur) 40 meq PO NOW [facility] Stop: 07/27/18 16:00 Sodium Chloride (Flush - Normal Saline) 10 ml IVF PRN PRN PRN Reason: Saline Flush Sodium Chloride (Normal Saline Pf) 10 ml FS PRN PRN PRN Reason: RECONSTITUTION Last Admin: 07/25/18 08:38 Dose: 10 ml Tramadol HCl (Ultram) 50 mg PO QIDPRN PRN PRN Reason: Pain>4 Last Admin: 07/27/18 13:36 Dose: 50 mg
[2018-07-27] MEDS ORDERED: Potassium Chloride 20 MEQ TAB PO SCH (14:00)
[2018-07-27] MEDS ORDERED: Potassium Chloride 10 MEQ/100 ML PREMIX BAG IVPB SCH (14:15)
--- NOTE | 2018-07-27 14:44 | PRG ---
DATE OF SERVICE: 07/27/2018 SUBJECTIVE: Ms. Dennis is doing well today. In the skilled nursing, she is nonambulatory. She has had multiple bowel movements. OBJECTIVE: VITAL SIGNS: Temperature 98 degrees, pulse 85, blood pressure 108/70. NG tube output over 24 hours is less than 50. GENERAL: The patient denies any abdominal pain. LUNGS: Clear to auscultation. CARDIAC: Regular rhythm without murmur or gallop. ABDOMEN: Slightly protuberant, nontympanitic, much softer than yesterday. Active bowel sounds audible. EXTREMITIES: Unremarkable. LABORATORY DATA: White count 7, hemoglobin 11.5. Basic metabolic profile is normal. Potassium 3.1. Yesterday, the patient had a small-bowel follow-through that revealed contrast transit to the colon without obstruction with a diffusely dilated small bowel. Abdominal x-rays this morning revealed a few air-fluid levels, but contrast in the colon and she has had multiple bowel movements. Yesterday, I did not hear any bowel sounds. Today, bowel sounds are very active. The patient had a urinalysis clean-catch that was ordered yesterday and there was no growth in 12 hours. She does have history of UTIs. ASSESSMENT AND PLAN: DNR patient with past history of laparoscopic cholecystectomy only surgical history presenting with more likely an ileus. This may be related to her Parkinson state and medication. Urine culture today does not demonstrate infection. NG tube output has been minimal. Would remove her NG tube and start full liquids. Would mobilize her up into a chair. At this point, there is no indication for surgical intervention. If she is tolerating her diet well today, we could advance her to regular diet tomorrow. Job ID: [id number]
[2018-07-27] MEDS: Metoclopramide 10 MG/10 ML UDCUP PO SCH ×2 (16:47→21:29)
[2018-07-27] MEDS: cefTRIAXone\\ROCEPHIN 2 GM in Sodium Chloride 0.9% 100 ML IVPB SCH (16:47)
[2018-07-28 08:15] LABS: Anion Gap 12 mmol/L (10-20); BUN (Urea Nitrogen) 7 mg/dL (9.8-20.1); Calc. Creatinine Clearance 38 mL/min (70-130); Calcium 8.6 mg/dL (7.8-10.44); Carbon Dioxide 26 mmol/L (23-31); Chloride 104 mmol/L (98-107); Estimated GFR-MDRD 75; Glucose 109 mg/dL (83-110); Potassium 3.6 mmol/L (3.5-5.1); Sodium 138 mmol/L (136-145)
[2018-07-28] MEDS: Polyethylene Glycol 3350 17 GM Packet PO SCH (08:24)
[2018-07-28] MEDS: Metoclopramide 10 MG/10 ML UDCUP PO SCH ×2 (08:24→11:31)
[2018-07-28] MEDS: Dextrose 5 %-0.45 % NaCl 1,000 ML IV SCH (11:31)
[2018-07-28] MEDS: traMADol HCl 50 MG TAB PO PRN (11:38)
[2018-07-28 14:22] VITALS: BP 124/76; TEMP 99.4
[2018-07-28] MEDS ORDERED: Docusate 100 MG CAP PO SCH (21:00)
--- NOTE | 2018-07-29 04:14 | DIS ---
DATE OF ADMISSION: 07/21/2018 DATE OF DISCHARGE: 07/28/2018 PRIMARY CARE PROVIDER: Mckay Lance MD DISCHARGE DIAGNOSES: 1. Ileus. 2. Hypokalemia. 3. Fecal impaction. CONSULTATIONS DURING THIS HOSPITALIZATION: 1. General Surgery, Dr. uFnes. 2. Gastroenterology, Dr. Henderson. CONDITION OF PATIENT ON THE DAY OF DISCHARGE: Stable. I assessed Ms. Dennis on the day of discharge. She was unable to provide any history. Vital signs are stable. S1 and S2 are heard, regular. Lungs are clear to auscultation bilaterally. DISCHARGE MEDICATIONS: In addition to her pre-admission home medications as dictated by Dr. Lance on his history and physical note dated July 22, 2018, she is being discharged on MiraLAX 17 g daily and docusate 100 mg 2 times a day. HOSPITAL COURSE: Ms. Dennis is a pleasant 87-year-old lady, who was admitted to [facility] on July 28, 2018, for suspected bowel obstruction and fecal impaction. She had fecal disimpaction. She was seen by Gastroenterology and General Surgery Services. It was felt that her presentation was secondary to ileus. She had abdominal x-rays, which showed that contrast had passed through the small bowel into the colon. On July 27, she had bowel movements. She has been started on bowel regimen and is being [facility] She was hypokalemic during this hospitalization, which resolved with potassium supplementation. Many thanks for allowing me to participate in your patient's care. Please feel free to contact me with any questions or concerns. DISCHARGE DESTINATION: [facility] in [place]. TIME SPENT: Total amount of time spent coordinating this discharge: 31 minutes. Job ID: [id number]
== END 2018-07-28 14:11 | DRG 389 ==
LOC: ERS 11:07 → T4-A 18:25
PROVIDERS: ADMIT Internal Medicine; ATTEND Internal Medicine
DX: K56.7 Ileus, unspecified (principal); N39.0 Urinary tract infection, site not specified; K56.41 Fecal impaction; Z66 Do not resuscitate; G20 Parkinson's disease; K21.9 Gastro-esophageal reflux disease without esophagitis; F41.9 Anxiety disorder, unspecified; M19.90 Unspecified osteoarthritis, unspecified site; G89.29 Other chronic pain; M54.9 Dorsalgia, unspecified; E86.0 Dehydration; E87.6 Hypokalemia; J44.9 Chronic obstructive pulmonary disease, unspecified; Z90.49 Acquired absence of other specified parts of digestive tract; Z88.1 Allergy status to other antibiotic agents; Z79.899 Other long term (current) drug therapy
CPT/HCPCS: 36415; 51701; 74018; 74019; 74022; 74176; 74177; 74250; 80048; 80053; 81003; 81015; 83605; 83690; 85025; 87040; 87086; 93005; 96361; 96374; 96375; C9113; J0696; J2405; J2543; J3010; J3480; J3490; J8597; Q9963; Q9966; Q9967

== ENCOUNTER 2018-08-07 09:25 | Emergency (ER) | payer MEDICARE, MEDICAID ==
[2018-08-07] MEDS ORDERED: Clindamycin/D5W 600 mg/50 ml Premix Bag ONE (10:24)
[2018-08-07 10:25] LABS: Hemoglobin 13.6 g/dL (12.0-16.0); Mean Corpuscular HGB CONC 31.6 g/dL (32.0-36.0); Mean Corpuscular Hemoglobin 31.4 pg (27.0-31.0); Mean Corpuscular Volume 99.4 fL (78.0-98.0); Mean Platelet Volume 8.4 fL (7.4-10.4); Platelet Count 245 thou/uL (130-400); RBC Distribution Width 12.2 % (11.5-14.5); Red Blood Cell (RBC) Count 4.31 mill/uL (4.20-5.40); White Blood Cell (WBC) Count 23.5 thou/uL (4.8-10.8)
[2018-08-07 10:45] LABS: Band 14 % (5-11); Monocytes 4 % (0-10); Neutrophil 82 % (42-75); Nucleated RBC 1 % (0)
[2018-08-07 10:46] LABS: Platelet Morphology Comment Appears Adequate
[2018-08-07 10:48] LABS: MDiff Complete? YES
[2018-08-07 11:21] LABS: ALT (SGPT) 22 U/L (8-55); AST (SGOT) 16 U/L (5-34); BUN (Urea Nitrogen) 30 mg/dL (9.8-20.1)
[2018-08-07 11:50] LABS: Albumin 3.4 g/dL (3.4-4.8); Alkaline Phosphatase 89 U/L (40-150); Anion Gap 16 mmol/L (10-20); Bilirubin, Total 0.8 mg/dL (0.2-1.2); Calc. Creatinine Clearance 0 mL/min (70-130); Calcium 9.6 mg/dL (7.8-10.44); Carbon Dioxide 27 mmol/L (23-31); Chloride 112 mmol/L (98-107); Estimated GFR-MDRD 47; Globulin 3.6 g/dL (2.4-3.5); Glucose 187 mg/dL (83-110); Potassium 3.5 mmol/L (3.5-5.1); Sodium 151 mmol/L (136-145)
--- NOTE | 2018-08-07 12:06 | CT ---
CONTRAST ENHANCED CT IMAGES SOFT TISSUE NECK: Date: 08/07/18 HISTORY: Left-sided jaw swelling. Contrast enhanced CT images of soft tissue neck obtained. IV contrast was given. FINDINGS: The apices of the lungs are unremarkable. No definite evidence of aortic abnormality seen. The thyroid glands are unremarkable. The right and left common and internal carotid arteries are patent. No evidence of neck lymphadenopat hy seen. There is asymmetric enhancement and enlargement of the left parotid gland compatible with left-sided parotiditis. There is diffuse enhancement without evidence of significant distortion of the left paro tid anatomy, including the left retromandibular vein. Correlate with clinical exam. Diffuse neoplasti c involvement of the left parotid gland, however, cannot be completely excluded. Correlate with follo w-up images and clinical correlation after appropriate treatment. IMPRESSION: Asymmetric diffuse enhancement of the left parotid gland. This may represent changes of parotiditis. POS: [facility]
[2018-08-07] MEDS ORDERED: ISOVUE-370 76%-LOCM 1 ML ONE (17:06)
== END 2018-08-07 13:26 ==
LOC: ERS 09:25
DX: K11.20 Sialoadenitis, unspecified (principal); J44.9 Chronic obstructive pulmonary disease, unspecified; G20 Parkinson's disease; K21.9 Gastro-esophageal reflux disease without esophagitis; M19.90 Unspecified osteoarthritis, unspecified site; F41.9 Anxiety disorder, unspecified
CPT/HCPCS: 70491; 80053; 85025; J3490; Q9966

== ENCOUNTER 2018-08-09 08:55 | Inpatient (IN) | payer MEDICARE, MEDICAID ==
[2018-08-09 09:27] LABS: Hemoglobin 13.2 g/dL (12.0-16.0); Mean Corpuscular HGB CONC 30.9 g/dL (32.0-36.0); Mean Corpuscular Hemoglobin 31.3 pg (27.0-31.0); Mean Platelet Volume 9.2 fL (7.4-10.4); Platelet Count 216 thou/uL (130-400); RBC Distribution Width 12.2 % (11.5-14.5); White Blood Cell (WBC) Count 15.6 thou/uL (4.8-10.8)
[2018-08-09 09:41] LABS: Band 9 % (5-11); Lymphocytes 15 % (21-51); MDiff Complete? YES; Monocytes 6 % (0-10); Neutrophil 69 % (42-75); RBC Morphology Normal; Reactive Lymphocytes 1 % (0-10)
[2018-08-09 09:48] LABS: ALT (SGPT) 83 U/L (8-55); AST (SGOT) 116 U/L (5-34); Albumin 3.1 g/dL (3.4-4.8); Alkaline Phosphatase 104 U/L (40-150); Anion Gap 16 mmol/L (10-20); BUN (Urea Nitrogen) 43 mg/dL (9.8-20.1); Bilirubin, Total 0.8 mg/dL (0.2-1.2); CK (CPK) 323 U/L (29-168); Calc. Creatinine Clearance 0 mL/min (70-130); Calcium 8.7 mg/dL (7.8-10.44); Carbon Dioxide 27 mmol/L (23-31); Chloride 121 mmol/L (98-107); Estimated GFR-MDRD 48; Globulin 3.4 g/dL (2.4-3.5); Glucose 110 mg/dL (83-110); Potassium 4.2 mmol/L (3.5-5.1); Protein, Total 6.5 g/dL (6.0-8.3); Sodium 160 mmol/L (136-145)
[2018-08-09 09:50] LABS: Bilirubin Negative (Negative); Blood, Urine Moderate (Negative); Clarity CLOUDY (Clear); Glucose, Urine (Dipstick) Negative (Negative); Leukocyte Small (Negative); Nitrite Negative (Negative); Protein, Urine (Dipstick) 100 mg/dL (Neg-Trace); Specific Gravity, Urine 1.024 (1.002-1.036)
[2018-08-09 09:52] LABS: Pathc Cast-AUWi Flag 1.63 (0-2.49); RBC/HPF 0-3 HPF (0-3); Squamous Epithelial None Seen HPF (0-3); WBC/HPF 21-50 HPF (0-3)
--- NOTE | 2018-08-09 09:54 | RAD ---
XR Chest 1 View Portable HISTORY: Dyspnea COMPARISON: 04/20/2017 study FINDINGS: Heart size is enlarged. There are atherosclerotic changes of the aorta. Chronic lung change s are present. No acute process identified. The bones appear demineralized. Evidence of a chronic right-sided rotator cuff tear are noted. IMPRESSION: Chronic lung change. Mild cardiomegaly.
[2018-08-09] MEDS ORDERED: Acetaminophen 650 MG Suppository ONE (10:00)
[2018-08-09] MEDS ORDERED: Piperacillin/Tazobactam 4.5 GM VIAL ONE (10:06)
[2018-08-09 10:09] LABS: Bacteria/HPF 3+ HPF (None Seen)
[2018-08-09 10:16] LABS: CKMB 6.8 ng/mL (0-6.6)
[2018-08-09] MEDS ORDERED: ISOVUE-370 76%-LOCM 1 ML ONE (10:47)
--- NOTE | 2018-08-09 11:10 | CT ---
Exam: Postcontrast soft tissue neck CT HISTORY: Increased swelling. Eval for possible abscess; previously noted abnormal left parotid gland. COMPARISON: 08/07/2018 FINDINGS: Redemonstration of a large heterogeneous left parotid gland. The overall attenuation has not changed. Small areas of hypoattenuation are noted in the superficial and inferior aspect of the left parotid gland which may represent small intraglandular areas of cystic change. Microabscesses cannot be completely excluded however no evidence of abnormal air attenuation in the left parotid gland. Mild induration of the overlying dermis and subcutaneous. Effacement of the aerodigestive tract in the left posterior oral cavity, hypopharynx, similar to the previous examination. There does appear to be interval edematous change involving the posterior hypopharynx, extending into left and right lingual tonsils. Aerodigestive tract does appear to be pat ent. Right parotid gland, submandibular glands and thyroid gland are stable Asymmetric edema involving the left sternocleidomastoid muscle, likely reactive. Great vessels of the neck are grossly patent Chronic changes involving the atlantoaxial articulation. Enlarged left level 2 lymph node measuring 0.8 x 1.6 cm, unchanged. No evidence of abscess in the lef t neck soft tissues. Upper mediastinum and lung apices are unchanged IMPRESSION: 1. Redemonstration of mixed attenuation involving the entire left parotid gland with asymmetric enlar gement, worrisome for parotiditis until proven otherwise. Small microabscesses within the parotid gland cannot be excluded, however, there is no evidence of abnormal air attenuation. 2. Enlargement reactive left level 2 lymph node 3. Mild edematous change involving the left sternocleidomastoid muscle, likely reactive. No evidence of a drainable abscess in the left neck soft tissues 4. Mild edematous changes involving the posterior hypopharynx and oral cavity which may represent estiven ctive changes secondary to infection centered in the left parotid gland. 5. Consider infectious disease/ENT consultation
[2018-08-09 12:52] LABS: Troponin I 0.137 ng/mL (< 0.028)
[2018-08-09] MEDS ORDERED: Ondansetron PF 4 MG/2 ML Vial IVP PRN (13:42)
[2018-08-09] MEDS ORDERED: Ondansetron ODT 4 MG TAB SL PRN (13:42)
[2018-08-09] MEDS ORDERED: Dextrose 5% in Water 1,000 ML IV SCH (13:45)
[2018-08-09] MEDS: Dextrose 5% in Water 1,000 ML IV SCH ×2 (13:47)
[2018-08-09] MEDS ORDERED: Piperacillin/Tazobactam 4.5 GM in Sodium Chloride 0.9% 100 ML IVPB SCH (17:00)
[2018-08-09] MEDS: Piperacillin/Tazobactam 4.5 GM in Sodium Chloride 0.9% 100 ML IVPB SCH ×2 (18:10→22:32)
--- NOTE | 2018-08-09 22:53 | PRG ---
DATE OF SERVICE: SUBJECTIVE: Ms. Dennis was admitted via ER for sepsis. During exam, noted that she had a swollen left parotid that requested Ear, Nose, and Throat consult. The patient is currently admitted to the floor and has gotten a dose of both IV vancomycin and Zosyn. OBJECTIVE: GENERAL: The patient is in no acute distress. She is resting currently. VITAL SIGNS: At this time are stable. HEENT: Upon examination, left-sided parotid is significantly swollen, red, indurated, somewhat warm to touch. Visual exam of the parotid opening inside the mouth with massage did not extract any kind of fluid at all indicating a possible blockage of the parotid duct. The patient was somewhat uncomfortable during the parotid massage. ASSESSMENT: 1. Right parotitis. 2. Sepsis. 3. Bladder infection. PLAN: 1. Continue IV vancomycin and Zosyn as indicated by Pharmacy. 2. If blood cultures indicated change in antibiotic therapy, may consult ENT concerning parotid and change of medication. 3. Continue with hydration as indicated by Medicine. 4. Continue to consult ENT as needed. Job ID: [id number]
[2018-08-09] MEDS ORDERED: Vancomycin HCl 1 GM in Premix Bag 1 BAG IVPB SCH (23:00)
[2018-08-10 05:15] LABS: #Eosinphils 0.1 thou/uL (0.0-0.7); #Lymphocytes 0.9 thou/uL (1.20-3.40); #Monocytes 0.8 thou/uL (0.11-0.59); #Neutrophils 11.7 thou/uL (1.40-6.50); %Basophils 0.1 % (0.0-1.0); %Lymphocytes 6.6 % (21.0-51.0); %Monocytes 5.8 % (0.0-10.0); %Neutrophils 86.5 % (42.0-75.0); Hemoglobin 11.5 g/dL (12.0-16.0); Mean Corpuscular HGB CONC 30.7 g/dL (32.0-36.0); Mean Corpuscular Hemoglobin 30.8 pg (27.0-31.0); Mean Platelet Volume 8.6 fL (7.4-10.4); Platelet Count 197 thou/uL (130-400); RBC Distribution Width 12.1 % (11.5-14.5); Red Blood Cell (RBC) Count 3.72 mill/uL (4.20-5.40); White Blood Cell (WBC) Count 13.6 thou/uL (4.8-10.8)
[2018-08-10 05:34] LABS: Anion Gap 12 mmol/L (10-20); BUN (Urea Nitrogen) 28 mg/dL (9.8-20.1); Calc. Creatinine Clearance 32 mL/min (70-130); Calcium 8.6 mg/dL (7.8-10.44); Carbon Dioxide 25 mmol/L (23-31); Chloride 119 mmol/L (98-107); Estimated GFR-MDRD 65; Glucose 131 mg/dL (83-110); Sodium 153 mmol/L (136-145)
[2018-08-10 05:36] LABS: Potassium 2.8 mmol/L (3.5-5.1)
[2018-08-10] MEDS ORDERED: Potassium Chloride 20 MEQ in Premix Bag 1 BAG IVPB SCH ×4 (06:15→19:30)
--- NOTE | 2018-08-10 08:26 | HP ---
CHIEF COMPLAINT: Altered mental status and swelling on the left side of the face. HISTORY OF PRESENT ILLNESS: Ms. Dennis is an 87-year-old female with past medical history of Parkinson disease, recent fecal impaction, and ileus, who was noted to have swelling on the left side of the face about 2 to 3 days ago, it was red, and had fever, so she was sent to the emergency room where she was evaluated for and diagnosed with parotiditis, was placed on clindamycin. Today, the patient developed fever and became more lethargic, not eating well. So in view of that, the patient was sent back to the emergency room for further evaluation. So , according to [facility], the patient was minimally responsive to the pain. Opens her eyes on command. So, EMS was called. EMS found the patient with temperature of 100 and tachycardia with heart rate 105. So, she was evaluated in the ER and found to have obvious parotiditis, left side, and also urinary tract infection. The patient was also severely dehydrated as well as hypernatremic. She was given a dose of Zosyn and vancomycin in view of her parotiditis and UTI, started on IV fluids and D5W with hypernatremia. The patient was admitted for further evaluation and management. PAST MEDICAL HISTORY: 1. Parkinson disease. 2. Anxiety disorder. 3. History of gastroesophageal reflux disease. 4. COPD. 5. Recent ileus and constipation and fecal impaction. PAST SURGICAL HISTORY: Status post laparoscopic cholecystectomy. CURRENT MEDICATIONS: The patient is on: 1. Tylenol p.r.n. 2. Dulcolax 10 mg daily. 3. Colace 100 mg b.i.d. 4. Robitussin p.r.n. 5. Milk of magnesia p.r.n. 6. MiraLAX 17 g daily. 7. Ranitidine 150 daily. 8. Recently started on clindamycin. ALLERGIES: NKDA. FAMILY HISTORY: Nothing contributory. SOCIAL HISTORY: The patient lives in [facility]. No history of smoking. No history of alcohol intake. REVIEW OF SYSTEMS: Unable to obtain. The patient is not very awake or alert, not responding to questions. PHYSICAL EXAMINATION: VITAL SIGNS: Temperature 98, pulse is 80, respirations 20, and blood pressure 140/60. HEENT: Head is normocephalic, atraumatic. Pupils are equal and reactive. Nasopharynx is pale and dry. Hard and soft palates. No lesions. NECK: Supple. No JVD. There is marked swelling present in the left side of the face near the left ear over the parotid gland area with erythema, it is tender, it is warm to touch. LUNGS: Bilateral air entry with no rales, no rhonchi. HEART: S1 and S2, regular. ABDOMEN: Soft. No distention. No tenderness. Normal bowel sounds. RECTAL: Deferred. CENTRAL NERVOUS SYSTEM: No focal deficits. LABORATORY DATA: CBC shows WBC of 15.6, hemoglobin 13.2, hematocrit 42.6, and platelets 216. Metabolic panel; sodium 160, potassium 4.2, chloride 121, CO2 of 27, BUN 43, creatinine 1, glucose 110, CK-MB 6.8, troponin I 0.160. BNP was 100. Urinalysis revealed wbc 21 to 50 and bacteria 3+. CT scan of the soft tissue of the neck was reported as mixed attenuation involving the entire left parotid gland, suspected to have parotiditis. There is reactive lymph node enlargement as well, edematous change involving left sternocleidomastoid muscle. Chest x-ray showed chronic lung changes. EKG shows normal sinus rhythm, no acute ST-T-wave changes seen. ASSESSMENT: 1. Acute parotiditis, left. 2. Urinary tract infection. 3. Rule out sepsis. 4. Acute metabolic encephalopathy. 5. Acute kidney injury. 6. Hypernatremia. 7. History of Parkinson disease. PLAN: 1. Vital signs q.4 hours. 2. Activity, as tolerated. 3. Allergies, NKDA. 4. Diet, pureed. 5. IV fluids D5W 80 ml/hr 6. Zosyn 4.5 gms IV piggyback q.6 hours. 7. Vancomycin 1 g IV piggyback q.12 hours. 8. We will follow the cultures. 9. Continue [facility] medications. 10. The patient is DNR. Job ID: [id number] [facility]
[2018-08-10] MEDS ORDERED: Prevnar 13-Val Conj/PF 0.5 ML SYRINGE IM ONE (09:00)
[2018-08-10] MEDS: Dextrose 5% in Water 1,000 ML IV SCH ×2 (09:20→20:45)
[2018-08-10] MEDS: Cefepime 1 GM in Sodium Chloride 0.9% 100 ML IVPB SCH ×2 (13:45→21:00)
[2018-08-10] MEDS: Vancomycin HCl 1.25 GM in Sodium Chloride 0.9% 250 ML 250 ML IVPB SCH (13:45)
[2018-08-10] MEDS ORDERED: Guaifenesin DM 100-10/5 ML UDCUP PO PRN (19:02)
[2018-08-10] MEDS ORDERED: Milk Of Magnesia 30 ML UDCUP PO PRN (19:02)
--- NOTE | 2018-08-10 20:22 | CON ---
DATE OF CONSULTATION: 08/10/2018 REASON FOR CONSULTATION: Parotitis. HISTORY OF PRESENT ILLNESS: An 87-year-old, whom I had seen in 2017 when she presented with a history of Parkinson disease, COPD, and possible aspiration pneumonia. At this time, she is brought in from the correction with change in her behavior and mental status. This is associated with tachycardia and a temperature 105. Apparently in the correction, she had a urinalysis and was given some antimicrobial therapy for possible UTI. The exam in the emergency room was not remarkable except for swelling of the entire left parotid gland. She had a CT of the parotid gland, this is the second one within 2 days. The first one showed asymmetric diffuse enhancement of left parotid gland. The second one 2 days later demonstrated mixed attenuation left parotid gland with asymmetric enlargement. Currently, Ms. Dennis is awake, but she is unable to communicate, has had no reported diarrhea or aspiration. PAST MEDICAL HISTORY: Parkinson disease, COPD, osteoarthritis, cholecystectomy , and aspiration pneumonia. ALLERGIES: CIPROFLOXACIN WITH RASH. FAMILY HISTORY: Noncontributory. CURRENT MEDICATIONS: 1. Cefepime. 2. Dextrose. 3. Potassium. 4. Vancomycin. PHYSICAL EXAMINATION: VITAL SIGNS: T-max 98.4, blood pressure 130/70, pulse 87, respirations 18, and O2 saturation 96%. SKIN: She has no areas of skin breakdown. She has a peripheral IV access and is voiding in the diaper. HEENT: Temporal wasting. SKIN: Marked swelling of the left parotid gland. Mild erythema. The patient grimaces when that area is palpated. The oral cavity mucosa is dry, was not able to express any exudate from the parotid gland by palpation. Stiffness is diffuse. She is able to move extremities, but has sort of spasticity of her movements and some element of contractures in the hands. The ocular movements are conjugate. NECK: No jugular vein distention. LUNGS: Symmetric air entry with no crackles or wheezing. HEART: S1 and S2, regular rate. ABDOMEN: Soft. Does not have a gastrostomy tube and marked atrophy of appendicular structures, musculature. EXTREMITIES: Plantar responses are withdrawal. No clonus. No edema. NEUROLOGIC: She is awake, does not establish eye contact and does not interact with the examiner. LABORATORY DATA: White cell count 15.6 and now 13.6, hemoglobin 11.5, platelets 197 with 86% neutrophils. Sodium 153, creatinine 0.83. AST 116, ALT 83, CK 323. BNP 100. Albumin 3.1. ASSESSMENT: 1. Parkinson disease. 2. Chronic obstructive pulmonary disease. 3. Acute parotitis, likely bacterial left parotid gland. 4. Volume depletion. DISCUSSION: Most likely scenario here is volume depletion, decrease in parotid gland secretion with secondary infection. The most common microbiology culprit is Staphylococcus aureus including the possibility of MRSA, gram-negative rods, and streptococci are also seen, but less often. Abscess formation can occur, but is not apparent at this time. Continue IV cefepime and vancomycin. Volume repletion. May need to reassess her swallowing mechanism to see if she would be able to maintain this modality of nutritional input. Job ID: [id number] [facility]
[2018-08-10] MEDS: Acetaminophen 325 MG TAB PO PRN (20:42)
[2018-08-10] MEDS: Docusate 100 MG CAP PO SCH (20:42)
[2018-08-10] MEDS: Polyvinyl Alcohol 1.4%/Povidone 0.6% Opth Drops EA EYE SCH (20:44)
[2018-08-10] MEDS ORDERED: Artificial Tear Sol 15 ML BOT EA EYE SCH (21:00)
[2018-08-11] MEDS: Vancomycin HCl 1.25 GM in Sodium Chloride 0.9% 250 ML 250 ML IVPB SCH ×2 (01:05→13:32)
[2018-08-11] MEDS: Cefepime 1 GM in Sodium Chloride 0.9% 100 ML IVPB SCH ×3 (05:33→21:04)
[2018-08-11] MEDS: Famotidine 20 MG TAB PO SCH (08:45)
[2018-08-11] MEDS: Polyethylene Glycol 3350 17 GM Packet PO SCH ×2 (08:45→08:46)
[2018-08-11] MEDS: Acetaminophen 325 MG TAB PO PRN (08:45)
[2018-08-11] MEDS: Docusate 100 MG CAP PO SCH ×2 (08:45→20:33)
[2018-08-11] MEDS: Bisacodyl 10 MG SUPP PR SCH (08:46)
[2018-08-11] MEDS: Polyvinyl Alcohol 1.4%/Povidone 0.6% Opth Drops EA EYE SCH ×2 (08:47→20:33)
[2018-08-11] MEDS: Dextrose 5% in Water 1,000 ML IV SCH (09:51)
[2018-08-11 12:51] LABS: #Basophils 0.1 thou/uL (0.0-0.2); #Eosinphils 0.1 thou/uL (0.0-0.7); #Lymphocytes 1.1 thou/uL (1.20-3.40); #Monocytes 0.6 thou/uL (0.11-0.59); #Neutrophils 7.2 thou/uL (1.40-6.50); %Basophils 0.6 % (0.0-1.0); %Eosinophils 1.1 % (0.0-10.0); %Lymphocytes 12.2 % (21.0-51.0); %Monocytes 6.8 % (0.0-10.0); %Neutrophils 79.3 % (42.0-75.0); Hemoglobin 11.3 g/dL (12.0-16.0); Mean Corpuscular HGB CONC 30.1 g/dL (32.0-36.0); Mean Corpuscular Hemoglobin 30.6 pg (27.0-31.0); Mean Platelet Volume 9.2 fL (7.4-10.4); Platelet Count 161 thou/uL (130-400); RBC Distribution Width 12.2 % (11.5-14.5); Red Blood Cell (RBC) Count 3.69 mill/uL (4.20-5.40); White Blood Cell (WBC) Count 9.1 thou/uL (4.8-10.8)
[2018-08-11 13:14] LABS: Anion Gap 11 mmol/L (10-20); BUN (Urea Nitrogen) 18 mg/dL (9.8-20.1); Calc. Creatinine Clearance 38 mL/min (70-130); Calcium 8.4 mg/dL (7.8-10.44); Carbon Dioxide 26 mmol/L (23-31); Chloride 114 mmol/L (98-107); Estimated GFR-MDRD 75; Glucose 112 mg/dL (83-110); Potassium 3.6 mmol/L (3.5-5.1); Sodium 147 mmol/L (136-145)
[2018-08-12 00:53] LABS: Vancomycin, Trough 40.5 ug/mL
[2018-08-12] MEDS ORDERED: Vancomycin HCl 1.25 GM in Sodium Chloride 0.9% 250 ML 250 ML IVPB SCH (01:30)
[2018-08-12] MEDS: Vancomycin HCl 1.25 GM in Sodium Chloride 0.9% 250 ML 250 ML IVPB SCH (02:14)
[2018-08-12] MEDS: Cefepime 1 GM in Sodium Chloride 0.9% 100 ML IVPB SCH ×3 (04:50→21:58)
[2018-08-12] MEDS: Dextrose 5% in Water 1,000 ML IV SCH ×3 (04:51→21:58)
[2018-08-12 06:32] LABS: #Eosinphils 0.1 thou/uL (0.0-0.7); #Monocytes 0.7 thou/uL (0.11-0.59); #Neutrophils 6.3 thou/uL (1.40-6.50); %Eosinophils 1.3 % (0.0-10.0); %Monocytes 8.1 % (0.0-10.0); %Neutrophils 78.6 % (42.0-75.0); Hemoglobin 10.7 g/dL (12.0-16.0); Mean Corpuscular HGB CONC 31.6 g/dL (32.0-36.0); Mean Corpuscular Hemoglobin 31.6 pg (27.0-31.0); Mean Corpuscular Volume 99.9 fL (78.0-98.0); Mean Platelet Volume 9.1 fL (7.4-10.4); Platelet Count 146 thou/uL (130-400); RBC Distribution Width 12.2 % (11.5-14.5); Red Blood Cell (RBC) Count 3.38 mill/uL (4.20-5.40)
[2018-08-12 06:52] LABS: Anion Gap 11 mmol/L (10-20); BUN (Urea Nitrogen) 14 mg/dL (9.8-20.1); Calc. Creatinine Clearance 42 mL/min (70-130); Calcium 8.4 mg/dL (7.8-10.44); Carbon Dioxide 21 mmol/L (23-31); Chloride 112 mmol/L (98-107); Estimated GFR-MDRD 80; Glucose 92 mg/dL (83-110); Potassium 3.4 mmol/L (3.5-5.1); Sodium 141 mmol/L (136-145)
[2018-08-12] MEDS: Famotidine 20 MG TAB PO SCH (09:26)
[2018-08-12] MEDS: Docusate 100 MG CAP PO SCH ×2 (09:26→20:35)
[2018-08-12] MEDS: Bisacodyl 10 MG SUPP PR SCH (09:26)
[2018-08-12] MEDS: Polyvinyl Alcohol 1.4%/Povidone 0.6% Opth Drops EA EYE SCH ×2 (10:02→20:44)
[2018-08-12] MEDS ORDERED: Potassium Chloride 20 MEQ TAB PO SCH (15:15)
[2018-08-13 02:15] LABS: Vancomycin, Random 23.6 ug/mL (See Comment)
[2018-08-13] MEDS: Cefepime 1 GM in Sodium Chloride 0.9% 100 ML IVPB SCH ×3 (05:49→14:43)
[2018-08-13] MEDS: Potassium Chloride 10 MEQ TAB PO SCH (07:22)
[2018-08-13] MEDS: Polyethylene Glycol 3350 17 GM Packet PO SCH ×2 (09:26→09:35)
[2018-08-13] MEDS: Bisacodyl 10 MG SUPP PR SCH ×2 (09:26→09:35)
[2018-08-13] MEDS: Docusate 100 MG CAP PO SCH ×2 (09:26→20:55)
[2018-08-13] MEDS: Famotidine 20 MG TAB PO SCH (09:26)
[2018-08-13] MEDS: Polyvinyl Alcohol 1.4%/Povidone 0.6% Opth Drops EA EYE SCH ×3 (11:18→21:06)
[2018-08-13] MEDS: Dextrose 5% in Water 1,000 ML IV SCH (11:19)
[2018-08-13 14:24] LABS: Vancomycin, Random 18.9 ug/mL (See Comment)
--- NOTE | 2018-08-13 16:39 | PRG ---
DATE OF SERVICE: 08/13/2018 SUBJECTIVE: The patient is awake, but does not interact with the examiner, not having fever. OBJECTIVE: VITAL SIGNS: Blood pressure 118/90, pulse 75, respirations 17, O2 saturation 94%. HEENT: Still with the swelling of left parotid gland, but no erythema anymore. A bit softer to palpation. toll gate tender. Oral mucosa is a bit dry. LUNGS: Symmetric air entry. HEART: S1 and S2. Regular rate. ABDOMEN: Soft, not distended. GENITOURINARY: Voiding in the diaper. No bladder distention. NEUROLOGIC: Unchanged. LABORATORY DATA: White cell count down to 8.0, hemoglobin 10.7, platelets 146. Creatinine is 0.69, which is improved from admission. Sodium is better at 141. ASSESSMENT AND DISCUSSION: Parkinson disease, chronic obstructive pulmonary disease, acute parotitis secondary to volume depletion, and obstruction of the parotid gland secretion flow with then secondary suppurative parotitis. Staphylococcus aureus including methicillin-resistant Staphylococcus aureus the most likely scenario. The patient has lost IV access and I have advised switching her to oral Zyvox suspension. Continue to maintain adequate volume repletion to re-establish proper parotid gland flow. Job ID: [id number]
[2018-08-13] MEDS: Linezolid 600 MG TAB PO SCH (20:55)
[2018-08-14 06:59] LABS: #Eosinphils 0.1 thou/uL (0.0-0.7); #Lymphocytes 1.2 thou/uL (1.20-3.40); #Monocytes 0.6 thou/uL (0.11-0.59); #Neutrophils 5.9 thou/uL (1.40-6.50); %Basophils 0.1 % (0.0-1.0); %Eosinophils 1.5 % (0.0-10.0); %Lymphocytes 15.5 % (21.0-51.0); %Monocytes 7.6 % (0.0-10.0); %Neutrophils 75.2 % (42.0-75.0); Mean Corpuscular HGB CONC 32.4 g/dL (32.0-36.0); Mean Corpuscular Hemoglobin 31.6 pg (27.0-31.0); Mean Corpuscular Volume 97.3 fL (78.0-98.0); Mean Platelet Volume 9.2 fL (7.4-10.4); Platelet Count 178 thou/uL (130-400); Red Blood Cell (RBC) Count 3.48 mill/uL (4.20-5.40); White Blood Cell (WBC) Count 7.9 thou/uL (4.8-10.8)
[2018-08-14 07:26] LABS: Anion Gap 10 mmol/L (10-20); BUN (Urea Nitrogen) 11 mg/dL (9.8-20.1); Calc. Creatinine Clearance 37 mL/min (70-130); Calcium 8.5 mg/dL (7.8-10.44); Carbon Dioxide 27 mmol/L (23-31); Chloride 106 mmol/L (98-107); Estimated GFR-MDRD 70; Glucose 84 mg/dL (83-110); Sodium 140 mmol/L (136-145)
[2018-08-14] MEDS: Potassium Chloride 10 MEQ TAB PO SCH (09:50)
[2018-08-14] MEDS: Polyethylene Glycol 3350 17 GM Packet PO SCH (09:50)
[2018-08-14] MEDS: Docusate 100 MG CAP PO SCH ×2 (09:51→21:53)
[2018-08-14] MEDS: Linezolid 600 MG TAB PO SCH ×2 (09:51→21:53)
[2018-08-14] MEDS: Famotidine 20 MG TAB PO SCH (09:51)
[2018-08-14] MEDS: Bisacodyl 10 MG SUPP PR SCH (09:52)
[2018-08-14] MEDS ORDERED: Sodium Chloride 0.9% 10 ML ONE (10:02)
[2018-08-14] MEDS: Polyvinyl Alcohol 1.4%/Povidone 0.6% Opth Drops EA EYE SCH ×2 (10:04→21:54)
[2018-08-14] MEDS: Potassium Chloride 20 MEQ in Premix Bag 1 BAG IVPB SCH ×2 (10:05→14:56)
[2018-08-14] MEDS: Potassium Chloride 20 MEQ TAB PO SCH ×3 (15:50→21:53)
[2018-08-14] MEDS ORDERED: traMADol HCl 50 MG TAB PO PRN (18:27)
[2018-08-15 06:57] LABS: Anion Gap 12 mmol/L (10-20); BUN (Urea Nitrogen) 11 mg/dL (9.8-20.1); Calc. Creatinine Clearance 36 mL/min (70-130); Carbon Dioxide 27 mmol/L (23-31); Chloride 107 mmol/L (98-107); Estimated GFR-MDRD 66; Glucose 82 mg/dL (83-110); Magnesium 2.1 mg/dL (1.6-2.6); Potassium 4.5 mmol/L (3.5-5.1); Sodium 141 mmol/L (136-145)
[2018-08-15] MEDS ORDERED: Potassium Chloride 20 MEQ TAB PO SCH (08:00)
[2018-08-15] MEDS: Polyethylene Glycol 3350 17 GM Packet PO SCH (09:31)
[2018-08-15] MEDS: Linezolid 600 MG TAB PO SCH (09:32)
[2018-08-15] MEDS: Bisacodyl 10 MG SUPP PR SCH (09:32)
[2018-08-15] MEDS: Famotidine 20 MG TAB PO SCH (09:32)
[2018-08-15] MEDS: Docusate 100 MG CAP PO SCH (09:32)
[2018-08-15] MEDS: Polyvinyl Alcohol 1.4%/Povidone 0.6% Opth Drops EA EYE SCH (09:33)
[2018-08-15 11:50] VITALS: BP 125/69
[2018-08-15 14:01] VITALS: BMI 20.8
[2018-08-15 14:18] VITALS: TEMP 97.6
--- NOTE | 2018-08-15 15:53 | PQF ---
MATHIEU JOSHI VENKAT R MD [phone] [facility]-285 [phone] CLINICAL DOCUMENTATION IMPROVEMENT CLARIFICATION FORM: ICD-10 Updated PLEASE DO AN ADDENDUM TO THE PROGRESS NOTE WITH ANY DOCUMENTATION UPDATES OR ADDITIONS AND CARRY THROUGH TO DC SUMMARY. THANK YOU. DATE: 08/15/2018 ATTN: DR. Rehana SEGOVIA Please exercise your independent, professional judgment in responding to the clarification form. Clinical indicators are provided on the bottom of this form for your review. Please check appropriate box(es): [ ] Sepsis due to: Parotitis [ y ] Localized infection without sepsis [ ] Other diagnosis [ ] Unable to determine In addition, please specify: Present on Admission (POA): [ y ] Yes [ ] No [ ] Unable to determine For continuity of documentation, please document condition throughout progress notes and discharge summary. Thank You. CLINICAL INDICATORS - SIGNS / SYMPTOMS / LABS 08/09 ED PHYSICIAN DX: SEPSIS, CELLULITIS, ELEVATED TROPONIN, HYPERNATREMIA, UTI 08/09 WBC 15.6, 13.6 08/09 PN (JOHN) ASSESSMENT: 2) SEPSIS 08/09 H &P (JULIETTE) ASSESSMENT: 3) RULE OUT SEPSIS 08/10 CONSULT (YOUSIF) ASSESSMENT: 3) ACUTE PAROTITIS , LIKELY BACTERIAL, LEFT PAROTID GLAND 08/10 PN (YOUSIF) ASSESSMENT AND DISCUSSION: ACUTE PAROTITIS SECONDARY TO VOLUME DEPLETION, AND OBSTRUCTION OF THE PAROTID GLAND SECRETION FLOW WITH THEN SECONDARY SUPPURATIVE PAROTITIS. STAPHYLOCOCCUS AUREUS INCLUDING MRSA THE MOST LIKELY SCENARIO. NO FURTHER MENTION OF SEPSIS TO DATE RISK: RIGHT PAROTITIS UTI ADVANCED AGE (87) TREATMENTS: INFECTIOUS DISEASE CONSULT VANC IV (08/09-PRESENT) THANK YOU! LEWIS (This form is maintained as a part of the permanent medical record) 2014 [employer]. All Rights Reserved [email or web address] [phone] MTDYennifer
--- NOTE | 2018-08-16 03:07 | DIS ---
DATE OF ADMISSION: 08/09/2018 DATE OF DISCHARGE: 08/15/2018 ADMITTING DIAGNOSES: 1. Acute parotitis, left side. 2. Urine tract infection. 3. Rule out sepsis. 4. Acute metabolic encephalopathy. 5. Acute kidney injury. 6. Hypernatremia. 7. History of Parkinson disease. FINAL DIAGNOSES: 1. Acute parotitis, left side. 2. Urinary tract infection. 3. Acute metabolic encephalopathy, improving. 4. Acute kidney injury, improved. 5. Hypernatremia, improved. 6. Parkinson disease. 7. Severe hypokalemia, improved. BRIEF SUMMARY OF HOSPITAL COURSE: Ms. Dennis is an 87-year-old female with past medical history of Parkinson's, was admitted because of left-sided swelling on the face which is acute parotitis. The patient had fever. She had acute kidney injury, severely dehydrated with hypernatremia. The patient was started on IV antibiotics with vancomycin and cefepime. ENT consultation was done and the patient seen by the ENT specialist who says to continue the IV antibiotics and no reason for any intervention. He felt there was no abcess. Infectious Disease consultation was done. The patient was seen by Dr. Haque. He felt the patient possibly has parotitis due to staph infection, so is to continue with IV antibiotics. In the next few days, the patient became more alert and awake and her kidney function improved. Her BUN which was 43 came down to 11 and creatinine also came down from 1.08 to 0.7. The patient was started on diet and she is eating much better than before. The patient was also found to have severe hypokalemia with potassium of 2.8. She was given potassium replacement and she was also started on supplement shakes. Her parotid erythema is less, but swelling size still not decreased. Dr. Haque felt it takes few more weeks for the swelling to go down, so her IV antibiotic was stopped and changed to Zyvox and the patient is discharged back to group home. At the time of discharge, she was stable. Her vital signs stable. Lungs are clear. Heart sounds regular. Abdomen is soft, nontender. Bowel sounds present. DISCHARGE MEDICATIONS: 1. Tylenol 650 q.4 p.r.n. 2. Ranitidine 150 daily. 3. Robitussin DM q.i.d. p.r.n. 4. Tramadol 50 q.6 p.r.n. 5. Colace 100 mg b.i.d. 6. MiraLAX 17 g daily. 7. remeron 15 mg daily. 8. Dulcolax p.r.n. 9. Milk of magnesia p.r.n. 10. Zyvox 600 mg b.i.d. for two weeks. 11. KCl 20 mEq daily. The patient will be followed up at group home. Job ID: [id number] [facility]
--- NOTE | 2018-08-16 11:02 | PQF ---
MATHIEU JOSHI VENKAT R MD [id number] CLINICAL DOCUMENTATION IMPROVEMENT CLARIFICATION FORM: ICD-10 Updated PLEASE DO AN ADDENDUM TO THE PROGRESS NOTE WITH ANY DOCUMENTATION UPDATES OR ADDITIONS AND CARRY THROUGH TO DC SUMMARY. THANK YOU. Date: 08/16/2018 ATTN: DR. Rehana SEGOVIA Please exercise your independent, professional judgment in responding to the clarification form. Clinical indicators are provided on the bottom of this form for your review. Please check appropriate box(s): [ y ] Protein Calorie Malnutrition: [ ] Mild [ y] Moderate [ ] Severe [ ] Cachexia [ ] Other diagnosis [ ] Unable to determine In addition, please specify: Present on Admission (POA): [ y ] Yes [ ] No [ ] Unable to determine CLINICAL INDICATORS - SIGNS / SYMPTOMS / LABS BMI 18.9 -PER DIETARY CONSULT 08/10/18 DIETARY CONSULT: MALNUTRITION W 4% WEIGHT LOSS IN 3 WEEKS, MODERATE MUSCLE WASTING OBSERVED; MODERATE TEMPORAL WASTING. RISK: 08/10 (JULIETTE) H&P: PARKINSON'S DX, GERD, COPD, RECENT ILEUS AND CONSTIPATION /FECAL IMPACTION; ASSISTED PATIENT, DISORIENTED TREATMENTS: DIETARY CONSULT 1). CONTINUE REGULAR DIET 2). RD TO ORDER MIGHTY SHAKES TID TO AID WITH INTAKE 3). RECOMMEND ENSURE ENLIVE BID 4). REPLACE K+ PRN Moderate Malnutrition (in acute illness) Energy Intake: <75% of estimated energy requirement for > 7 days Weight Loss: 1-2%/1 week; 5%/ 1 month; 7.5%/3 months Other: mild body fat loss; mild muscle mass loss; mild fluid accumulation; Severe Malnutrition (in acute illness) Energy Intake: < 50% of estimated energy requirement for > 5 days Weight Loss: >1-2%/1 week; >5%/1 month; >7.5%/3 months Other: moderate body fat loss; moderate muscle mass loss; moderate- severe fluid accumulation; measurably reduced store grocery merchandiser strength Moderate Malnutrition (in chronic illness) Energy Intake: <75% of estimated energy requirement for >1 month Weight Loss: 5%/1 month; 7.5%/3 months; 10%/6 months; 20%/1 year Other: mild body fat loss; mild muscle mass loss; mild fluid accumulation Severe Malnutrition (in chronic illness) Energy Intake: <75% of estimated energy requirement for >1 month Weight Loss: >5%/1 month; >7.5%/3 months; >10%/6 months; >20%/1 year Other: severe body fat loss; severe muscle mass loss; severe fluid accumulation ; measurably reduced store grocery merchandiser strength THANK YOU! LEWIS (This form is maintained as a part of the permanent medical record) 2014 [employer] All Rights Reserved [email or web address] [phone] [email or web address]
== END 2018-08-15 15:54 | DRG 154 ==
LOC: ERS 08:55 → 2NO 13:32
PROVIDERS: ADMIT Internal Medicine; ATTEND Internal Medicine
DX: K11.21 Acute sialoadenitis (principal); G93.41 Metabolic encephalopathy; N39.0 Urinary tract infection, site not specified; N17.9 Acute kidney failure, unspecified; E87.0 Hyperosmolality and hypernatremia; G20 Parkinson's disease; F41.9 Anxiety disorder, unspecified; J44.9 Chronic obstructive pulmonary disease, unspecified; E86.9 Volume depletion, unspecified; B95.62 Methicillin resistant Staphylococcus aureus infection as the cause of diseases classified elsewhere; Z90.49 Acquired absence of other specified parts of digestive tract; Z79.899 Other long term (current) drug therapy
CPT/HCPCS: 36415; 51701; 70491; 71045; 80048; 80053; 80202; 81003; 81015; 82550; 82553; 83605; 83735; 83880; 84484; 85025; 87040; 93005; 96361; 96365; A4353; J0692; J2543; J3370; J3480; J3490; J7050; J7070; Q9966